=== PATIENT | male | born 1940 | race Caucasian/White ===

== ENCOUNTER 2020-11-16 10:53 | Inpatient (IN) ==
[2020-11-16] MEDS ORDERED: 0.9 % SODIUM CHLORIDE 1,000 ML IV ONE (11:11)
--- NOTE | 2020-11-16 11:28 | Emergency Department Note ---
Altered Mental Status HPI General Chief Complaint: Altered Mental Status Stated Complaint: Altered loc, hypotension Time Seen by Provider: 11/16/20 11:16 Source: EMS Mode of arrival: EMS History of Present Illness HPI Narrative: 80-year-old male arrives from assisted living facility by EMS for evaluation of altered mental status. Patient is very sleepy arousable only to pain and history is provided by his and daughter who are here at the bedside. Patient does not have advanced dementia has had a previous stroke with some chronic right-sided deficits and has had a progressive decline in terms of his dementia and was placed in assisted living facility just earlier this week 4 days ago. The patient was last seen by his family 3 days ago at which time he was awake and alert. Today he received a call that the patient was difficult to arouse and was very sleepy and when the went to see him he was not at his baseline. Patient had not had anything to eat. He would only moan when you try to wake him up or touch any of his joints. Patient does not take any chronic pain medications or any sedatives.. Patient does have chronic pain in his joints presumably due to arthritis. There is no known fall or trauma. Nodes are chronically clear runny nose which appears slightly yellow today. Patient has a history of dementia previous stroke COPD hyperlipidemia. No history of diabetes. No additional history is available. Related Data Allergies Allergy/AdvReac Type Severity Reaction Status Date / Time hydromorphone Allergy Unknown Itching Verified 11/16/20 10:54 gluten [GLUTEN] AdvReac Severe Hives Verified 11/16/20 10:54 No to Iodine Allergy Unknown Unknown Uncoded 10/27/14 03:57 No to Latex Allergy Unknown Uncoded 10/27/14 03:57 Review of Systems ROS ROS Narrative: Unobtainable due to the patient having dementia [facility] Narrative Patient History Narrative: Narrative: Medical/Surgical/Family History All Active Problems (Updated 11/16/20 @ 15:49 by Juancho Salas MD) Altered mental status (Acute) Dementia (Acute) Dehydration (Acute) Pneumonia (Acute) Social History Smoking Status: Unknown if ever smoked Exam Narrative Narrative: Constitutional: Sleepy arousable to pain and voice HEENT: Normocephalic, atraumatic , oral mucosa dry, there are some yellow rhinorrhea out of the left nostril Neck: Supple, no lymphadenopathy, no JVD Lungs: Breathing unlabored, lungs clear Cardiac: Regular rate and rhythm, normal distal pulses, systolic murmur is present GI: Soft nontender nondistended no guarding no rebound Musculoskeletal: Diffuse extremity tenderness and joint tenderness which apparently is chronic. No deformities, no edema, full range of motion Neuro: Sleepy very arousable does not speak only moans when I try to move any of his joints, does not follow commands Psychiatric: Unable to assess Skin: Warm dry no rash, cap refill less than 2 seconds Course Reevaluation(s) Reevaluation #1: States patient has been a little bit more awake had some water to drink. But still is not at his baseline level of alertness. Time: 16:00 Consultations Consultation #1: Case discussed with hospitalist, Dr. Swan who agrees to see and admit the patient. Time: 16:22 Vital Signs Vital signs: Vital Signs Temperature 97.9 F 11/16/20 10:54 Pulse Rate 103 H 11/16/20 10:54 Respiratory Rate 18 11/16/20 10:54 Blood Pressure 101/73 11/16/20 10:54 Pulse Oximetry (%) 93 11/16/20 10:54 Temperature 97.4 F 11/16/20 17:55 Pulse Rate 83 11/16/20 17:55 Respiratory Rate 32 H 11/16/20 17:55 Blood Pressure 117/76 11/16/20 17:55 Pulse Oximetry (%) 94 11/16/20 17:55 [facility] MDM Narrative Medical decision making narrative: 80-year-old male with history of dementia recently placed in assisted living 4 days ago presents with altered mental status decreased level of alertness. Patient's family last saw him 3 days ago and he was awake alert but at his baseline level of confusion. Patient was difficult to awaken this morning. She does awaken to pain or verbal stimuli. CT of the brain did not show any acute process chest x-ray of bilateral infiltrates CHF or pneumonia are considerations. White blood cell count was found to be 17.1 electrolytes notable for chloride 110 CO2 19 BUN 25 glucose of 158. Urinalysis also appeared concentrated there was some hematuria was a catheterized specimen. 5 white blood cells per high-power field noted. Patient had a lactic acid which was normal. Suspect patient's presentation of altered mental status likely factorial with a combination of dehydration, suspect there is infection possibly pneumonia and/or UTI doses of IV Rocephin and Zithromax.. Patient will need to be admitted and hospitalist will be paged at this time. Differential Diagnosis Differential Diagnosis: Stroke, dehydration, metabolic derangement, infection, med side effect Lab Data Result diagrams: 11/16/20 11:36 11/16/20 11:36 Labs: Lab Results 11/16/20 11/16/20 11/16/20 Range/Units 11:36 11:36 11:36 WBC 17.1 H (4.5-11.0) K/mcL RBC 4.90 (4.50-5.90) M/mcL Hgb 13.6 (13.5-16.5) g/dL Hct 44.2 (41.0-55.0) % MCV 90.2 (80.0-100.0) fL MCH 27.8 (26.0-34.0) pg MCHC 30.8 L (31.0-36.0) g/dL RDW 16.4 H (11.5-14.5) % Plt Count 233 (140-440) K/mcL MPV 11.1 H (7.4-10.4) fL Neut % (Auto) 87.9 H (38.0-78.0) % Lymph % (Auto) 4.7 L (15.0-49.0) % [place] % (Auto) 7.1 (1.0-12.0) % Eos % (Auto) 0.1 (0.0-7.0) % Baso % (Auto) 0.2 (0.0-2.0) % Lymph # (Auto) 0.80 L (1.50-4.80) K/mcL [place] # (Auto) 1.22 H (0.10-0.90) K/mcL Eos # (Auto) 0.01 (0.00-0.70) K/mcL Baso # (Auto) 0.04 (0.00-0.20) K/mcL Absolute Neutrophils 15.07 H (1.80-8.00) K/mcL VBG Lactic Acid 1.9 (0.5-2.0) mmol/L Sodium 140 (133-145) mmol/L Potassium 3.7 (3.3-5.1) mmol/L Chloride 110 H (96-108) mmol/L Carbon Dioxide 19 L (22-30) mmol/L Anion Gap 11.0 (8.0-16.0) BUN 25 H (8-23) mg/dL Creatinine 1.2 (0.7-1.2) mg/dL POC Creatinine 1.2 (0.6-1.2) mg/dL GFR Calculation 56 Glucose 158 H (70-105) mg/dL Calcium 9.2 (8.6-10.4) mg/dL Total Bilirubin 2.8 H (0.1-1.0) mg/dL AST 33 (<40) U/L ALT 17 (<40) U/L Alkaline Phosphatase 116 (39-117) U/L Troponin T (<0.03) ng/mL NT-Pro-B Natriuret Pep (<450.0) pg/mL Total Protein 6.8 (5.9-8.4) gm/dL Albumin 2.5 L (3.2-5.2) gm/dL Globulin 4.3 H (2.2-3.7) gm/dL Albumin/Globulin Ratio 0.6 L (1.0-2.3) Urine Color Urine Appearance (Clear) Urine pH (5.0-9.0) Ur Specific [place] (1.000-1.035) Urine Protein (Negative) mg/dL Urine Glucose (UA) (Negative) mg/dL Urine Ketones (Negative) mg/dL Urine Occult Blood (Negative) mg/dL Urine Nitrate (Negative) Urine Bilirubin (Negative) mg/dL Urine Urobilinogen mg/dL Ur Leukocyte Esterase (Negative) /ug Urine RBC (0-3) /hpf Urine WBC (0-4) /hpf Ur Squamous Epith Cells (0-4) /hpf Ur Transition Epith Cell (0-2) /hpf Urine Bacteria (0) /hpf Hyaline Casts (0-2) /lph Granular Casts (0-0) /lph Urine Mucus (None) /hpf Urine Opiates Screen Ur Opiates Confirm Ur Oxycodone Screen Urine Methadone Screen Ur Methadone Confirm Ur Barbiturates Screen Ur Barbiturate Confirm Ur Phencyclidine Scrn Urine PCP Confirm Ur Amphetamines Screen U Amphetamines Confirm U Benzodiazepines Scrn U Benzodiazepine Confm Urine Cocaine Screen Urine Cocaine Confirm U Cannabinoids Confirm U Marijuana (THC) Screen 11/16/20 11/16/20 11/16/20 Range/Units 11:36 11:36 12:54 WBC (4.5-11.0) K/mcL RBC (4.50-5.90) M/mcL Hgb (13.5-16.5) g/dL Hct (41.0-55.0) % MCV (80.0-100.0) fL MCH (26.0-34.0) pg MCHC (31.0-36.0) g/dL RDW (11.5-14.5) % Plt Count (140-440) K/mcL MPV (7.4-10.4) fL Neut % (Auto) (38.0-78.0) % Lymph % (Auto) (15.0-49.0) % [place] % (Auto) (1.0-12.0) % Eos % (Auto) (0.0-7.0) % Baso % (Auto) (0.0-2.0) % Lymph # (Auto) (1.50-4.80) K/mcL [place] # (Auto) (0.10-0.90) K/mcL Eos # (Auto) (0.00-0.70) K/mcL Baso # (Auto) (0.00-0.20) K/mcL Absolute Neutrophils (1.80-8.00) K/mcL VBG Lactic Acid (0.5-2.0) mmol/L Sodium (133-145) mmol/L Potassium (3.3-5.1) mmol/L Chloride (96-108) mmol/L Carbon Dioxide (22-30) mmol/L Anion Gap (8.0-16.0) BUN (8-23) mg/dL Creatinine (0.7-1.2) mg/dL POC Creatinine (0.6-1.2) mg/dL GFR Calculation Glucose (70-105) mg/dL Calcium (8.6-10.4) mg/dL Total Bilirubin (0.1-1.0) mg/dL AST (<40) U/L ALT (<40) U/L Alkaline Phosphatase (39-117) U/L Troponin T 0.02 (<0.03) ng/mL NT-Pro-B Natriuret Pep 2722.0 H (<450.0) pg/mL Total Protein (5.9-8.4) gm/dL Albumin (3.2-5.2) gm/dL Globulin (2.2-3.7) gm/dL Albumin/Globulin Ratio (1.0-2.3) Urine Color Urine Appearance (Clear) Urine pH (5.0-9.0) Ur Specific [place] (1.000-1.035) Urine Protein (Negative) mg/dL Urine Glucose (UA) (Negative) mg/dL Urine Ketones (Negative) mg/dL Urine Occult Blood (Negative) mg/dL Urine Nitrate (Negative) Urine Bilirubin (Negative) mg/dL Urine Urobilinogen mg/dL Ur Leukocyte Esterase (Negative) /ug Urine RBC (0-3) /hpf Urine WBC (0-4) /hpf Ur Squamous Epith Cells (0-4) /hpf Ur Transition Epith Cell (0-2) /hpf Urine Bacteria (0) /hpf Hyaline Casts (0-2) /lph Granular Casts (0-0) /lph Urine Mucus (None) /hpf Urine Opiates Screen None detected Ur Opiates Confirm TNP Ur Oxycodone Screen None detected Urine Methadone Screen None detected Ur Methadone Confirm TNP Ur Barbiturates Screen None detected Ur Barbiturate Confirm TNP Ur Phencyclidine Scrn None detected Urine PCP Confirm TNP Ur Amphetamines Screen None detected U Amphetamines Confirm TNP U Benzodiazepines Scrn None detected U Benzodiazepine Confm TNP Urine Cocaine Screen None detected Urine Cocaine Confirm TNP U Cannabinoids Confirm TNP U Marijuana (THC) Screen None detected 11/16/20 Range/Units 12:54 WBC (4.5-11.0) K/mcL RBC (4.50-5.90) M/mcL Hgb (13.5-16.5) g/dL Hct (41.0-55.0) % MCV (80.0-100.0) fL MCH (26.0-34.0) pg MCHC (31.0-36.0) g/dL RDW (11.5-14.5) % Plt Count (140-440) K/mcL MPV (7.4-10.4) fL Neut % (Auto) (38.0-78.0) % Lymph % (Auto) (15.0-49.0) % [place] % (Auto) (1.0-12.0) % Eos % (Auto) (0.0-7.0) % Baso % (Auto) (0.0-2.0) % Lymph # (Auto) (1.50-4.80) K/mcL [place] # (Auto) (0.10-0.90) K/mcL Eos # (Auto) (0.00-0.70) K/mcL Baso # (Auto) (0.00-0.20) K/mcL Absolute Neutrophils (1.80-8.00) K/mcL VBG Lactic Acid (0.5-2.0) mmol/L Sodium (133-145) mmol/L Potassium (3.3-5.1) mmol/L Chloride (96-108) mmol/L Carbon Dioxide (22-30) mmol/L Anion Gap (8.0-16.0) BUN (8-23) mg/dL Creatinine (0.7-1.2) mg/dL POC Creatinine (0.6-1.2) mg/dL GFR Calculation Glucose (70-105) mg/dL Calcium (8.6-10.4) mg/dL Total Bilirubin (0.1-1.0) mg/dL AST (<40) U/L ALT (<40) U/L Alkaline Phosphatase (39-117) U/L Troponin T (<0.03) ng/mL NT-Pro-B Natriuret Pep (<450.0) pg/mL Total Protein (5.9-8.4) gm/dL Albumin (3.2-5.2) gm/dL Globulin (2.2-3.7) gm/dL Albumin/Globulin Ratio (1.0-2.3) Urine Color [place] Urine Appearance Hazy A (Clear) Urine pH 5.0 (5.0-9.0) Ur Specific [place] 1.029 (1.000-1.035) Urine Protein 100 A (Negative) mg/dL Urine Glucose (UA) Neg (Negative) mg/dL Urine Ketones Neg (Negative) mg/dL Urine Occult Blood 0.20 (Negative) mg/dL Urine Nitrate Neg (Negative) Urine Bilirubin 2.0 A (Negative) mg/dL Urine Urobilinogen 4.0 A mg/dL Ur Leukocyte Esterase Neg (Negative) /ug Urine RBC 56 H (0-3) /hpf Urine WBC 5 H (0-4) /hpf Ur Squamous Epith Cells 1 (0-4) /hpf Ur Transition Epith Cell < 1 (0-2) /hpf Urine Bacteria None (0) /hpf Hyaline Casts 35 H (0-2) /lph Granular Casts 7 H (0-0) /lph Urine Mucus Many A (None) /hpf Urine Opiates Screen Ur Opiates Confirm Ur Oxycodone Screen Urine Methadone Screen Ur Methadone Confirm Ur Barbiturates Screen Ur Barbiturate Confirm Ur Phencyclidine Scrn Urine PCP Confirm Ur Amphetamines Screen U Amphetamines Confirm U Benzodiazepines Scrn U Benzodiazepine Confm Urine Cocaine Screen Urine Cocaine Confirm U Cannabinoids Confirm U Marijuana (THC) Screen ED POC Tests ED POC Tests: SACHA - SARS Antigen Negative EKG Data EKG #1: EKG attestation: Yes I reviewed and interpreted this EKG. and Yes There are no EKG findings of acute coronary syndrome EKG results narrative: EKG performed 1123 shows sinus tachycardia rate of 100 first-degree AV block right bundle branch block left anterior fascicular block left axis deviation LVH nonspecific ST changes Discharge Plan Patient/Caregiver Discharge Instructions Pt seen by DIRECTOR TRAFFIC AND PLANNING/PA only: No Clinical Impression: Altered mental status, Dementia, Dehydration, Pneumonia Patient Disposition: Xfer As Inpt ([facility]) Condition: Fair Discharge Date/Time: 11/16/20 17:40
[2020-11-16] MEDS ORDERED: 0.9 % SODIUM CHLORIDE 1,000 ML IV SCH (11:30)
[2020-11-16 11:44] LABS: POC Creatinine 1.2 mg/dL (0.6-1.2)
--- NOTE | 2020-11-16 12:07 | EKG ---
[facility] Test Date: 2020-11-16 Pat Name: Cody Martin Department: ED Room: Gender: Male Speech Language Pathology Assistant: : 1940 Requested By: Juancho Salas Order Number: [id number] Reading MD: Jesse Patel M.D. Measurements Intervals [place] Rate: 100 P: 115 PA: 237 QRS: -46 QRSD: 124 T: -2 QT: 364 QTc: 470 Interpretive Statements Sinus tachycardia Prolonged PA interval RBBB and LAFB Left ventricular hypertrophy NO PRIOR TRACING FOR COMPARISON ABNORMAL ECG Electronically Signed On 11-16-2020 12:06:59 PDT by Jesse Patel M.D. [place] [email or web address][id number]
[2020-11-16 12:19] LABS: Basophils # (Auto) 0.04 K/mcL (0.00-0.20); Basophils % (Auto) 0.2 % (0.0-2.0); Eosinophils # (Auto) 0.01 K/mcL (0.00-0.70); Eosinophils % (Auto) 0.1 % (0.0-7.0); Hematocrit 44.2 % (41.0-55.0); Hemoglobin 13.6 g/dL (13.5-16.5); Lymphocytes % (Auto) 4.7 % (15.0-49.0); Mean Cell Volume 90.2 fL (80.0-100.0); Mean Corpuscular HGB Conc 30.8 g/dL (31.0-36.0); Mean Platelet Volume 11.1 fL (7.4-10.4); Monocytes # (Auto) 1.22 K/mcL (0.10-0.90); Monocytes % (Auto) 7.1 % (1.0-12.0); Neutrophils % (Auto) 87.9 % (38.0-78.0); Platelet Count 233 K/mcL (140-440); Red Cell Distribution Width 16.4 % (11.5-14.5); WBC 17.1 K/mcL (4.5-11.0)
--- NOTE | 2020-11-16 12:37 | Cat Scan Report ---
CLINICAL INFORMATION: Altered mental status COMPARISON: None. TECHNIQUE: 2.5 mm helical slices were obtained in the skull base to vertex. Following reconstruction, axial reformatted images were reviewed at bone and parenchymal windows. The exam was performed using radiation dose optimization techniques including, but not limited to, automated exposure control, adjustment of the mA and/or kV according to patient size and use of iterative reconstruction technique. FINDINGS: The ventricles, sulci, fissures, and cisterns are symmetrically enlarged bowel moderate age-related atrophy. No extra-axial fluid collections are identified. Scattered remote lacunar infarcts in basal ganglia and deep cerebral white matter appreciated: the largest 13 mm in the deep right frontal white matter tending to the right lentiform nucleus. A 9 mm lacunar infarct is noted in the left lentiform nucleus and 11 mm remote infarct seen in the right thalamus... There is no evidence of hemorrhage, mass effect, or edema. Bone windows show no osseous abnormality. IMPRESSION: Moderate atrophy, chronic ischemic changes and remote lacunar infarcts in the deep cerebral white matter, basal ganglia and thalamus. No intracerebral hemorrhage or other acute finding. Interpreted and Authenticated by: Talon Nunez 11/16/20
[2020-11-16 12:45] LABS: ALT/SGPT 17 U/L (<40); AST/SGOT 33 U/L (<40); Albumin 2.5 gm/dL (3.2-5.2); Albumin/Globulin Ratio 0.6 (1.0-2.3); Alkaline Phosphatase 116 U/L (39-117); Bilirubin,Total 2.8 mg/dL (0.1-1.0); Blood Urea Nitrogen 25 mg/dL (8-23); Calcium 9.2 mg/dL (8.6-10.4); Carbon Dioxide 19 mmol/L (22-30); Chloride 110 mmol/L (96-108); Globulin 4.3 gm/dL (2.2-3.7); Glomerular Filtration Rate 56; Glucose 158 mg/dL (70-105)
--- NOTE | 2020-11-16 13:16 | XRay Report ---
CLINICAL INFORMATION: ams COMPARISON: 07/17/2012 FINDINGS: Moderate cardiomegaly is unchanged. A pacer and leads remain in stable satisfactory position. Mediastinum is unremarkable. Moderate interstitial disease has developed throughout both lungs. This obscures the pulmonary vasculature which appears to be grossly normal. No effusions. IMPRESSION: Moderate interstitial disease developing throughout both lungs. This may represent infection, inflammation or edema from prior CHF or volume overload. Correlate with BNP and other signs of CHF suggested Interpreted and Authenticated by: Talon Nunez 11/16/20
[2020-11-16 14:01] LABS: Appearance,Urine HAZY (Clear); Color,Urine AMBER; Glucose,Urine (UA) NEG (Negative); Ketones,Urine NEG (Negative); Leukocyte Esterase,Urine NEG /ug (Negative); Mucus,Urine MANY /hpf; Nitrate,Urine NEG (Negative); Protein,Urine 100 mg/dL (Negative); Specific Gravity,Urine 1.029 (1.000-1.035); Urine Granular Cast 7 /lph (0-0); Urine Hyaline Cast 35 /lph (0-2); Urine RBC 56 /hpf (0-3); Urine Squamous Epithelial Cell 1 /hpf (0-4); Urine Transitional Epi Cells < 1 /hpf (0-2); Urine WBC 5 /hpf (0-4)
[2020-11-16 14:16] LABS: Amphetamine Screen,Urine None detected; Barbiturate Screen,Urine None detected; Benzodiazepines Screen,Urine None detected; Cannabinoid Screen,Urine None detected; Cocaine Screen,Urine None detected; Opiate Screen,Urine None detected; Oxycodone, Urine Screen None detected; Phencyclidine Screen,Urine None detected
[2020-11-16] MEDS ORDERED: AZITHROMYCIN 500 MG in DEXTROSE 5% IN WATER 250 ML IV ONE (15:35)
[2020-11-16] MEDS ORDERED: cefTRIAXone 1 GM VIAL IV ONE (15:35)
--- NOTE | 2020-11-16 16:50 | Internal Med History&Physical ---
HPI History of Present Illness Patient information: Note initiated : 11/16/20 at 4:41 pm Service Date, if different from initiated Date: [] Patient: Cody Martin a 80 y/o M admitted on for Altered loc, hypotension. Chief Complaint: [] History of present illness: Mr. Martin is a 80 year old M Presents to the ED with decreased level of consciousness. Patient has dementia and was recently placed in [facility] on Thursday. Over the past few days he is gradually declined and become less responsive. And is not feeding himself. The says she usually has to initiate feeding him each meal and then oftentimes will take over. Family went and saw him today and he was poorly responsive compared to usual. He is not verbal at baseline but is typically alert. Work-up in the ED showed a blood pressure of systolic in the 90s he was mildly tachycardic. He had a leukocytosis. Chemistry showed some what appeared to be some volume depletion. BNP was elevated. Chest x-ray was read as CHF and mild bibasilar infiltrates or atelectasis. Urinal with dehydration findings hyaline casts. CT brain with moderate atrophy and chronic ischemic changes remote infarcts but nothing acute. Unable to gather review of systems given underlying dementia PFSH PFSH All Active Problems (Updated 11/16/20 @ 15:49 by Juancho Salas MD) Altered mental status (Acute) Dementia (Acute) Dehydration (Acute) Pneumonia (Acute) MEDS/ALLERGIES Home Medications and Allergies Allergies Allergy/AdvReac Type Severity Reaction Status Date / Time hydromorphone Allergy Unknown Itching Verified 11/16/20 10:54 gluten [GLUTEN] AdvReac Severe Hives Verified 11/16/20 10:54 No to Iodine Allergy Unknown Unknown Uncoded 10/27/14 03:57 No to Latex Allergy Unknown Uncoded 10/27/14 03:57 EXAM Constitutional Vitals: Temp Pulse Resp BP Pulse Ox 97.9 F 86 21 100/75 96 11/16/20 10:54 11/16/20 15:46 11/16/20 16:34 11/16/20 16:34 11/16/20 15:46 Exam: General: Drowsy, No acute Distress Eyes/N/T: EOMI, PERRL, dry MM Head/Neck: neck supple, normocephalic atraumatic CV: RRR, No murmurs, normal s1/s2 Pulm: Difficult to auscultate as patient will not cooperate with exam Abd: soft, nontender, +BS x4 Ext: no clubbing/cyanosis/edema Neuro: Drowsy, will give slight cylinder worker bilaterally to command and wiggle toes to command, does not open eyes to command Skin: warm/dry DATA Data Completed and Pending Labs: Labs from last 24 hours 11/16/20 11/16/20 11/16/20 12:54 12:54 11:36 WBC RBC Hgb Hct MCV MCH MCHC RDW Plt Count MPV Neut % (Auto) Lymph % (Auto) [place] % (Auto) Eos % (Auto) Baso % (Auto) Lymph # (Auto) [place] # (Auto) Eos # (Auto) Baso # (Auto) Absolute Neutrophils VBG Lactic Acid Sodium Potassium Chloride Carbon Dioxide Anion Gap BUN Creatinine POC Creatinine GFR Calculation Glucose Calcium Total Bilirubin AST ALT Alkaline Phosphatase Troponin T NT-Pro-B Natriuret Pep 2722.0 H Total Protein Albumin Globulin Albumin/Globulin Ratio Urine Color [place] Urine Appearance Hazy A Urine pH 5.0 Ur Specific [place] 1.029 Urine Protein 100 A Urine Glucose (UA) Neg Urine Ketones Neg Urine Occult Blood 0.20 Urine Nitrate Neg Urine Bilirubin 2.0 A Urine Urobilinogen 4.0 A Ur Leukocyte Esterase Neg Urine RBC 56 H Urine WBC 5 H Ur Squamous Epith Cells 1 Ur Transition Epith Cell < 1 Urine Bacteria None Hyaline Casts 35 H Granular Casts 7 H Urine Mucus Many A Urine Opiates Screen None detected Ur Opiates Confirm TNP Ur Oxycodone Screen None detected Urine Methadone Screen None detected Ur Methadone Confirm TNP Ur Barbiturates Screen None detected Ur Barbiturate Confirm TNP Ur Phencyclidine Scrn None detected Urine PCP Confirm TNP Ur Amphetamines Screen None detected U Amphetamines Confirm TNP U Benzodiazepines Scrn None detected U Benzodiazepine Confm TNP Urine Cocaine Screen None detected Urine Cocaine Confirm TNP U Cannabinoids Confirm TNP U Marijuana (THC) Screen None detected 11/16/20 11/16/20 11/16/20 11:36 11:36 11:36 WBC RBC Hgb Hct MCV MCH MCHC RDW Plt Count MPV Neut % (Auto) Lymph % (Auto) [place] % (Auto) Eos % (Auto) Baso % (Auto) Lymph # (Auto) [place] # (Auto) Eos # (Auto) Baso # (Auto) Absolute Neutrophils VBG Lactic Acid 1.9 Sodium 140 Potassium 3.7 Chloride 110 H Carbon Dioxide 19 L Anion Gap 11.0 BUN 25 H Creatinine 1.2 POC Creatinine 1.2 GFR Calculation 56 Glucose 158 H Calcium 9.2 Total Bilirubin 2.8 H AST 33 ALT 17 Alkaline Phosphatase 116 Troponin T 0.02 NT-Pro-B Natriuret Pep Total Protein 6.8 Albumin 2.5 L Globulin 4.3 H Albumin/Globulin Ratio 0.6 L Urine Color Urine Appearance Urine pH Ur Specific [place] Urine Protein Urine Glucose (UA) Urine Ketones Urine Occult Blood Urine Nitrate Urine Bilirubin Urine Urobilinogen Ur Leukocyte Esterase Urine RBC Urine WBC Ur Squamous Epith Cells Ur Transition Epith Cell Urine Bacteria Hyaline Casts Granular Casts Urine Mucus Urine Opiates Screen Ur Opiates Confirm Ur Oxycodone Screen Urine Methadone Screen Ur Methadone Confirm Ur Barbiturates Screen Ur Barbiturate Confirm Ur Phencyclidine Scrn Urine PCP Confirm Ur Amphetamines Screen U Amphetamines Confirm U Benzodiazepines Scrn U Benzodiazepine Confm Urine Cocaine Screen Urine Cocaine Confirm U Cannabinoids Confirm U Marijuana (THC) Screen 11/16/20 11:36 WBC 17.1 H RBC 4.90 Hgb 13.6 Hct 44.2 MCV 90.2 MCH 27.8 MCHC 30.8 L RDW 16.4 H Plt Count 233 MPV 11.1 H Neut % (Auto) 87.9 H Lymph % (Auto) 4.7 L [place] % (Auto) 7.1 Eos % (Auto) 0.1 Baso % (Auto) 0.2 Lymph # (Auto) 0.80 L [place] # (Auto) 1.22 H Eos # (Auto) 0.01 Baso # (Auto) 0.04 Absolute Neutrophils 15.07 H VBG Lactic Acid Sodium Potassium Chloride Carbon Dioxide Anion Gap BUN Creatinine POC Creatinine GFR Calculation Glucose Calcium Total Bilirubin AST ALT Alkaline Phosphatase Troponin T NT-Pro-B Natriuret Pep Total Protein Albumin Globulin Albumin/Globulin Ratio Urine Color Urine Appearance Urine pH Ur Specific [place] Urine Protein Urine Glucose (UA) Urine Ketones Urine Occult Blood Urine Nitrate Urine Bilirubin Urine Urobilinogen Ur Leukocyte Esterase Urine RBC Urine WBC Ur Squamous Epith Cells Ur Transition Epith Cell Urine Bacteria Hyaline Casts Granular Casts Urine Mucus Urine Opiates Screen Ur Opiates Confirm Ur Oxycodone Screen Urine Methadone Screen Ur Methadone Confirm Ur Barbiturates Screen Ur Barbiturate Confirm Ur Phencyclidine Scrn Urine PCP Confirm Ur Amphetamines Screen U Amphetamines Confirm U Benzodiazepines Scrn U Benzodiazepine Confm Urine Cocaine Screen Urine Cocaine Confirm U Cannabinoids Confirm U Marijuana (THC) Screen A/P Narrative A/P Narrative: A: *Encephalopathy(decreased LOC) superimposed on advanced dementia: -CT brain with mod atrophy and old infarcts *Advanced dementia: *Leukocytosis: Infectious vs other *Volume depletion: *COPD: Stopped using inhalers *PAM: Stopped using CPAP, could not tolerate *h/o CVA: stopped taking asa/statin *CAD: pt Stopped taking cardiac meds *Patient only takes Tylenol these days per family, stopped medications he has been on in the past P: -IVF -empiric abx, pending BC -Mannual differential/procalcitonin -RVP -ABG -CM for placement -PT/OT -ppx: lovenox DNR Time Spent With Patient Time: Total time spent is greater than 50% in coordination of care (as documented) at patient's floor/unit and/or counseling patient:
[2020-11-16] MEDS ORDERED: IPRATROPIUM/ALBUTEROL 3 ML AMPUL.NEB NEB PRN (18:20)
[2020-11-16] MEDS ORDERED: MAGNESIUM SULFATE 2 GM/50 ML BAG IV PRN (18:20)
[2020-11-16] MEDS ORDERED: POTASSIUM CHLORIDE 40 MEQ in DEXTROSE 5% IN WATER 500 ML IV PRN (18:20)
[2020-11-16] MEDS ORDERED: POTASSIUM CHLORIDE 20 MEQ TABLET PO PRN ×2 (18:20)
[2020-11-16] MEDS ORDERED: ONDANSETRON 4 MG/2 ML VIAL IV PRN (18:20)
[2020-11-16] MEDS ORDERED: SENNOSIDES 1 TABLET PO PRN (18:20)
[2020-11-16] MEDS ORDERED: POLYETHYLENE GLYCOL 3350 17 GM PACKET PO PRN (18:20)
[2020-11-16] MEDS ORDERED: ACETAMINOPHEN 325 MG TABLET PO ONE (19:03)
[2020-11-16] MEDS: 0.9 % SODIUM CHLORIDE 1,000 ML IV SCH (19:13)
[2020-11-16] MEDS: ACETAMINOPHEN 325 MG TABLET PO PRN (19:13)
[2020-11-16 19:48] LABS: Anisocytosis 1+ (None Seen); Band Neutrophils % 2 % (0-10); Lymphocytes % 7 % (15-49); Monocytes % (Manual) 4 % (1-12); Platelet Estimate NORMAL (Normal); RBC Morphology ABNORMAL (Normal); Segmented Neutrophils % 87 % (38-78)
[2020-11-16] MEDS: DOCUSATE SODIUM 100 MG CAPSULE PO SCH (21:59)
[2020-11-16] MEDS: PIPERACILLIN SODIUM/TAZOBACTAM 3.375 GM in DEXTROSE 5% IN WATER 50 ML IV SCH (22:00)
[2020-11-16] MEDS: 0.9 % SODIUM CHLORIDE 10 ML SYRINGE IV SCH (22:00)
[2020-11-17] MEDS: ACETAMINOPHEN 325 MG TABLET PO PRN ×3 (01:44→15:06)
[2020-11-17] MEDS: PIPERACILLIN SODIUM/TAZOBACTAM 3.375 GM in DEXTROSE 5% IN WATER 50 ML IV SCH ×5 (04:04→23:41)
[2020-11-17] MEDS: 0.9 % SODIUM CHLORIDE 10 ML SYRINGE IV SCH ×3 (05:40→21:27)
[2020-11-17] MEDS: 0.9 % SODIUM CHLORIDE 1,000 ML IV SCH (06:32)
[2020-11-17] MEDS: PANTOPRAZOLE 40 MG TABLET PO SCH (07:14)
--- NOTE | 2020-11-17 07:36 | Internal Med Progress Note ---
SUBJECTIVE Subjective Patient information: Note initiated : 11/17/20 at 7:31 am Service Date, if different from initiated Date: [] Patient: Cody Martin 80 y/o M admitted on 11/16/20 for Altered loc, hypotension. Chief Complaint: [] Interval history: History of present illness: Mr. Martin is a 80 year old M Presents to the ED with decreased level of consciousness. Patient has dementia and was recently placed in [facility] on Thursday. Over the past few days he is gradually declined and become less responsive. And is not feeding himself. The says she usually has to initiate feeding him each meal and then oftentimes will take over. Family went and saw him today and he was poorly responsive compared to usual. He is not verbal at baseline but is typically alert. Work-up in the ED showed a blood pressure of systolic in the 90s he was mildly tachycardic. He had a leukocytosis. Chemistry showed some what appeared to be some volume depletion. BNP was elevated. Chest x-ray was read as CHF and mild bibasilar infiltrates or atelectasis. Urinal with dehydration findings hyaline casts. CT brain with moderate atrophy and chronic ischemic changes remote infarcts but nothing acute. 11/17 No overnight event or new complaints. Leukocytosis improving. chemistry panel pending. Blood culture still pending. Unable to gather review of systems given underlying dementia Constitutional Vitals: Vital Signs Temp Pulse Resp BP Pulse Ox 97 F 99 H 24 H 121/89 92 11/17/20 07:05 11/17/20 07:05 11/17/20 07:05 11/17/20 07:05 11/17/20 07:05 Period Temp Pulse Resp BP Sys/Iglesias Pulse Ox Last 24 Hr 96.9 F-97.9 F 68-106 15-39 86-121/66-89 92-97 Intake and Output 11/16/20 11/17/20 11/17/20 21:59 05:59 13:59 Intake Total 5551 434 9155 Output Total 400 Balance 8601 739 1321 Weight 82.055 kg Intake & Output: Intake & Output 11/16/20 11/17/20 11/17/20 21:59 05:59 13:59 Intake Total 9864 149 7337 Output Total 400 Balance 6858 217 1051 Weight 82.055 kg Intake: IV 8396 146 1524 Sodium Chloride 0.9% 1,000 ml @ 1000 1000 100 mls/hr IV .Q10H [facility] Rx#: [id number] Zithromax 500 mg In Dextrose 5% 250 in Water 250 ml @ 250 mls/hr IV ONCE ONE Rx#:[id number] Zosyn 3.375 gm In Dextrose 5% 100 in Water 50 ml @ 100 mls/hr IV Q6H [facility] Rx#:[id number] Oral 400 Output: Urine Catheter Amount 400 Other: Urine Appearance Mucous Threads Urine Color Tea Colored Exam: General: Drowsy, No acute Distress Eyes/N/T: EOMI, Head/Neck: neck supple, CV: RRR, No murmurs, Pulm: Difficult to auscultate as patient will not cooperate with exam Abd: soft, nontender, +BS x4 Ext: no clubbing/cyanosis/edema Neuro: Drowsy, will give slight demolitionist bilaterally to command and wiggle toes to command, does not open eyes to command Skin: warm/dry OBJ DATA Labs CBC & Chem 7: 11/17/20 05:13 11/16/20 11:36 Labs: Abnormal Lab Results 11/16/20 11/16/20 11/16/20 17:18 17:17 12:54 WBC MCHC RDW MPV Neut % (Auto) Lymph % (Auto) Lymph # (Auto) [place] # (Auto) Seg Neutrophils % 87 H Lymphocytes % 7 L Absolute Neutrophils RBC Morphology Abnormal A Anisocytosis 1+ A Chloride Carbon Dioxide BUN Glucose Total Bilirubin C-Reactive Protein NT-Pro-B Natriuret Pep Albumin Globulin Albumin/Globulin Ratio Procalcitonin 0.43 H Urine Appearance Hazy A Urine Protein 100 A Urine Bilirubin 2.0 A Urine Urobilinogen 4.0 A Urine RBC 56 H Urine WBC 5 H Hyaline Casts 35 H Granular Casts 7 H Urine Mucus Many A 11/16/20 11/16/20 11/16/20 11:36 11:36 11:36 WBC MCHC RDW MPV Neut % (Auto) Lymph % (Auto) Lymph # (Auto) [place] # (Auto) Seg Neutrophils % Lymphocytes % Absolute Neutrophils RBC Morphology Anisocytosis Chloride 110 H Carbon Dioxide 19 L BUN 25 H Glucose 158 H Total Bilirubin 2.8 H C-Reactive Protein 32.30 H NT-Pro-B Natriuret Pep 2722.0 H Albumin 2.5 L Globulin 4.3 H Albumin/Globulin Ratio 0.6 L Procalcitonin Urine Appearance Urine Protein Urine Bilirubin Urine Urobilinogen Urine RBC Urine WBC Hyaline Casts Granular Casts Urine Mucus 11/16/20 11:36 WBC 17.1 H MCHC 30.8 L RDW 16.4 H MPV 11.1 H Neut % (Auto) 87.9 H Lymph % (Auto) 4.7 L Lymph # (Auto) 0.80 L [place] # (Auto) 1.22 H Seg Neutrophils % Lymphocytes % Absolute Neutrophils 15.07 H RBC Morphology Anisocytosis Chloride Carbon Dioxide BUN Glucose Total Bilirubin C-Reactive Protein NT-Pro-B Natriuret Pep Albumin Globulin Albumin/Globulin Ratio Procalcitonin Urine Appearance Urine Protein Urine Bilirubin Urine Urobilinogen Urine RBC Urine WBC Hyaline Casts Granular Casts Urine Mucus Meds: Medications Acetaminophen (Acetaminophen 325 Mg Tablet) 650 mg PO Q6HP PRN PRN Reason: PAIN/FEVER > 101 Last Admin: 11/17/20 01:44 Dose: 650 mg Documented by: Albuterol/Ipratropium (Ipratropium/Albuterol 3 Ml Ampul.Neb) 3 ml NEB Q4HP PRN PRN Reason: Shortness Of Breath Docusate Sodium (Docusate Sodium 100 Mg Capsule) 100 mg PO BID [facility] Last Admin: 11/16/20 21:59 Dose: 100 mg Documented by: Enoxaparin Sodium (Enoxaparin 40 Mg/0.4 Ml Syringe) 40 mg SQ DAILY [facility] Potassium Chloride 40 meq/ (Dextrose) 520 mls @ 130 mls/hr IV UD PRN PRN Reason: Potassium < 3 Magnesium Sulfate (Magnesium Sulfate) 2 gm in 50 mls @ 50 mls/hr IV UD PRN PRN Reason: Magnesium </= 1.6 Sodium Chloride (Sodium Chloride 0.9%) 1,000 mls @ 100 mls/hr IV .Q10H [facility] Stop: 11/17/20 14:19 Last Infusion: 11/17/20 07:10 Dose: Infused Documented by: Piperacillin Sod/Tazobactam (Sod 3.375 gm/ Dextrose) 50 mls @ 100 mls/hr IV Q6H [facility]; Protocol Last Infusion: 11/17/20 04:35 Dose: Infused Documented by: Mupirocin (Mupirocin Oint 2% 22gm) 1 dose NARES BID [facility] Ondansetron HCl (Ondansetron 4 Mg/2 Ml Vial) 4 mg IV Q4HP PRN PRN Reason: Nausea And Vomiting Pantoprazole Sodium (Pantoprazole 40 Mg Tablet) 40 mg PO QAMAC [facility] Last Admin: 11/17/20 07:14 Dose: 40 mg Documented by: Polyethylene Glycol (Polyethylene Glycol 3350 17 Gm Packet) 17 gm PO DAILYP PRN PRN Reason: Constipation Potassium Chloride (Potassium Chloride 20 Meq Tablet) 40 meq PO UD PRN PRN Reason: Potssium is 3-3.5 Potassium Chloride (Potassium Chloride 20 Meq Tablet) 40 meq PO UD PRN PRN Reason: Potassium < 3 Senna (Sennosides 1 Tablet) 2 tab PO DAILYP PRN PRN Reason: Constipation Sodium Chloride (0.9 % Sodium Chloride 10 Ml Syringe) 10 ml IV Q8 [facility] Last Admin: 11/17/20 05:40 Dose: Not Given Documented by: A/P Narrative A/P Narrative: A: *Encephalopathy(decreased LOC) superimposed on advanced dementia: -CT brain with mod atrophy and old infarcts *Advanced dementia: *Leukocytosis (no bandemia, afebrile): Infectious (?PNA atypical) vs other -RVP/covid neg -PCT(mildly)/CRP elevated *Volume depletion: improved *COPD: Stopped using inhalers *PAM: Stopped using CPAP, could not tolerate *h/o CVA: stopped taking asa/statin *CAD: pt Stopped taking cardiac meds *Patient only takes Tylenol these days per family, stopped medications he has been on in the past P: -IVF -empiric abx, pending BC -MRSA decolonizaton -CM for placement -PT/OT -ppx: lovenox DNR Time Spent With Patient Time: Total time spent is greater than 50% in coordination of care (as documented) at patient's floor/unit and/or counseling patient: QUALITY Stroke Symptom Onset Unknown: No VTE Deep Vein Thrombosis/Pulmonary Embolism Present on Admission: No
[2020-11-17 08:26] LABS: Hematocrit 39.9 % (41.0-55.0); Hemoglobin 12.4 g/dL (13.5-16.5); Mean Cell Volume 89.3 fL (80.0-100.0); Mean Corpuscular HGB Conc 31.1 g/dL (31.0-36.0); Mean Platelet Volume 10.8 fL (7.4-10.4); Platelet Count 247 K/mcL (140-440); RBC 4.47 M/mcL (4.50-5.90); WBC 15.1 K/mcL (4.5-11.0)
[2020-11-17 08:45] LABS: ALT/SGPT 15 U/L (<40); AST/SGOT 22 U/L (<40); Albumin 2.5 gm/dL (3.2-5.2); Albumin/Globulin Ratio 0.7 (1.0-2.3); Alkaline Phosphatase 103 U/L (39-117); Bilirubin,Direct 0.5 mg/dL (<0.3); Bilirubin,Total 1.5 mg/dL (0.1-1.0); Blood Urea Nitrogen 25 mg/dL (8-23); Calcium 8.8 mg/dL (8.6-10.4); Carbon Dioxide 21 mmol/L (22-30); Chloride 109 mmol/L (96-108); Globulin 3.7 gm/dL (2.2-3.7); Glomerular Filtration Rate 79; Glucose 86 mg/dL (70-105); Lactate Dehydrogenase 239 U/L (135-225); Phosphorous 2.7 mg/dL (2.5-4.5); Triglycerides 81 mg/dL (<150); Uric Acid 4.8 mg/dL (2.5-8.0)
[2020-11-17] MEDS: DOCUSATE SODIUM 100 MG CAPSULE PO SCH ×2 (08:53→21:28)
[2020-11-17] MEDS: ENOXAPARIN 40 MG/0.4 ML SYRINGE SQ SCH (08:54)
[2020-11-17] MEDS: MUPIROCIN OINT 2% 22GM NARES SCH ×2 (08:57→21:27)
[2020-11-17] MEDS ORDERED: cefTRIAXone 1 GM VIAL IV SCH (09:00)
[2020-11-17] MEDS ORDERED: AZITHROMYCIN 500 MG in DEXTROSE 5% IN WATER 250 ML IV SCH (09:00)
[2020-11-17 09:23] LABS: Anisocytosis 1+ (None Seen); Band Neutrophils % 2 % (0-10); Lymphocytes % 10 % (15-49); Monocytes % (Manual) 7 % (1-12); Platelet Estimate NORMAL (Normal); RBC Morphology ABNORMAL (Normal); Segmented Neutrophils % 81 % (38-78)
[2020-11-18] MEDS: PIPERACILLIN SODIUM/TAZOBACTAM 3.375 GM in DEXTROSE 5% IN WATER 50 ML IV SCH ×4 (06:33→23:49)
[2020-11-18] MEDS: 0.9 % SODIUM CHLORIDE 10 ML SYRINGE IV SCH ×3 (06:33→21:32)
[2020-11-18 06:43] LABS: Basophils # (Auto) 0.05 K/mcL (0.00-0.20); Basophils % (Auto) 0.4 % (0.0-2.0); Eosinophils # (Auto) 0.21 K/mcL (0.00-0.70); Eosinophils % (Auto) 1.6 % (0.0-7.0); Hemoglobin 12.4 g/dL (13.5-16.5); Lymphocytes # (Auto) 1.31 K/mcL (1.50-4.80); Lymphocytes % (Auto) 9.8 % (15.0-49.0); Mean Cell Volume 90.3 fL (80.0-100.0); Mean Platelet Volume 10.7 fL (7.4-10.4); Monocytes # (Auto) 0.88 K/mcL (0.10-0.90); Monocytes % (Auto) 6.6 % (1.0-12.0); Neutrophils % (Auto) 81.6 % (38.0-78.0); Platelet Count 262 K/mcL (140-440); RBC 4.43 M/mcL (4.50-5.90); Red Cell Distribution Width 15.9 % (11.5-14.5); WBC 13.3 K/mcL (4.5-11.0)
--- NOTE | 2020-11-18 06:50 | XRay Report ---
CLINICAL INFORMATION: f/u infiltrate, suspect atypical PNA vs chf COMPARISON: 11/16/2020 FINDINGS: The heart is mildly enlarged slightly decreased. Pacemaker leads in stable satisfactory position. Mediastinum and pulmonary vasculature are unremarkable. Moderate interstitial disease throughout both lungs, more severe on the left side, is unchanged. No effusions. IMPRESSION: Moderate interstitial disease throughout both lungs - more severe on the left. This was not seen on the remote 2013 exam, but is unchanged from the most recent chest x-ray two days ago. Given the short-term stability, this may represent interstitial fibrosis rather than edema or inflammation. Consider chest CT if clinically indicated Interpreted and Authenticated by: Talon Nunez 11/18/20
[2020-11-18] MEDS: PANTOPRAZOLE 40 MG TABLET PO SCH (06:52)
[2020-11-18] MEDS: ACETAMINOPHEN 325 MG TABLET PO PRN ×2 (06:52→18:04)
[2020-11-18 07:04] LABS: ALT/SGPT 20 U/L (<40); AST/SGOT 28 U/L (<40); Albumin 2.2 gm/dL (3.2-5.2); Albumin/Globulin Ratio 0.5 (1.0-2.3); Alkaline Phosphatase 111 U/L (39-117); Bilirubin,Direct 0.2 mg/dL (<0.3); Bilirubin,Total 0.8 mg/dL (0.1-1.0); Blood Urea Nitrogen 23 mg/dL (8-23); Calcium 8.8 mg/dL (8.6-10.4); Carbon Dioxide 22 mmol/L (22-30); Chloride 110 mmol/L (96-108); Globulin 4.1 gm/dL (2.2-3.7); Glomerular Filtration Rate 79; Glucose 105 mg/dL (70-105); Lactate Dehydrogenase 255 U/L (135-225); Phosphorous 2.1 mg/dL (2.5-4.5); Triglycerides 92 mg/dL (<150); Uric Acid 3.4 mg/dL (2.5-8.0)
--- NOTE | 2020-11-18 07:11 | Internal Med Progress Note ---
SUBJECTIVE Subjective Patient information: Note initiated : 11/18/20 at 7:08 am Service Date, if different from initiated Date: [] Patient: Cody Martin 80 y/o M admitted on 11/16/20 for Altered loc, hypotension. Chief Complaint: [] Interval history: History of present illness: Mr. Martin is a 80 year old M Presents to the ED with decreased level of consciousness. Patient has dementia and was recently placed in [facility] on Thursday. Over the past few days he is gradually declined and become less responsive. And is not feeding himself. The says she usually has to initiate feeding him each meal and then oftentimes will take over. Family went and saw him today and he was poorly responsive compared to usual. He is not verbal at baseline but is typically alert. Work-up in the ED showed a blood pressure of systolic in the 90s he was mildly tachycardic. He had a leukocytosis. Chemistry showed some what appeared to be some volume depletion. BNP was elevated. Chest x-ray was read as CHF and mild bibasilar infiltrates or atelectasis. Urinal with dehydration findings hyaline casts. CT brain with moderate atrophy and chronic ischemic changes remote infarcts but nothing acute. 11/17 No overnight event or new complaints. Leukocytosis improving. chemistry panel pending. Blood culture still pending. 11/18 Patient doing well. Awake and answers questions. No new complaints or overnight events. Chest x-ray is suspicious for fibrosis. Will obtain CT to further clarify. Review of Systems: denies headache/fever/chills/nausea/vomiting/chest or abdominal pain/cough/dyspnea/diarrhea. Otherwise see above. Constitutional Vitals: Vital Signs Temp Pulse Resp BP Pulse Ox 98 F 80 24 H 105/76 95 11/18/20 03:00 11/18/20 03:00 11/18/20 03:00 11/18/20 03:00 11/18/20 03:00 Period Temp Pulse Resp BP Sys/Iglesias Pulse Ox Last 24 Hr 97.4 F-98.4 F 79-93 24-28 91-132/59-79 94-96 Intake and Output 11/17/20 11/18/20 11/18/20 21:59 05:59 13:59 Intake Total 50 530 Output Total 400 Balance -350 530 Weight 85.729 kg Intake & Output: Intake & Output 11/17/20 11/18/20 11/18/20 21:59 05:59 13:59 Intake Total 50 530 Output Total 400 Balance -350 530 Weight 85.729 kg Intake: IV 50 50 Zosyn 3.375 gm In Dextrose 5% 50 50 in Water 50 ml @ 100 mls/hr IV Q6H [facility] Rx#:[id number] Oral 480 Output: Urine Catheter Amount 400 Other: Meal Dinner Nourishment/Supplement Percent of Meal Consumed 100% 100% Feeding Ability Independent Urine Appearance Clear Urine Color Dark [place] Stool Size Moderate Stool Color Brown Stool Consistency Soft Formed Exam: General: Awake , no acute Distress Eyes/N/T: EOMI, Head/Neck: neck supple, CV: RRR, No murmurs, Pulm: mild rales right lateral, no wheezing Abd: soft, nontender, +BS x4 Ext: no clubbing/cyanosis/edema Neuro: Awake and answers to questions appropriately, moves extremities and follows commands Skin: warm/dry OBJ DATA Labs CBC & Chem 7: 11/18/20 05:30 11/18/20 05:30 Labs: Abnormal Lab Results 11/18/20 11/18/20 11/17/20 05:30 05:30 05:22 WBC 13.3 H RBC 4.43 L Hgb 12.4 L Hct 40.0 L MCHC RDW 15.9 H MPV 10.7 H Neut % (Auto) 81.6 H Lymph % (Auto) 9.8 L Lymph # (Auto) 1.31 L [place] # (Auto) Seg Neutrophils % Lymphocytes % Absolute Neutrophils 10.85 H RBC Morphology Anisocytosis Chloride 110 H Carbon Dioxide BUN Glucose Phosphorus 2.1 L Total Bilirubin Direct Bilirubin GGT 86 H Lactate Dehydrogenase 255 H C-Reactive Protein NT-Pro-B Natriuret Pep Albumin 2.2 L Globulin 4.1 H Albumin/Globulin Ratio 0.5 L Procalcitonin 0.42 H Urine Appearance Urine Protein Urine Bilirubin Urine Urobilinogen Urine RBC Urine WBC Hyaline Casts Granular Casts Urine Mucus 11/17/20 11/17/20 11/17/20 05:22 05:13 05:13 WBC 15.1 H RBC 4.47 L Hgb 12.4 L Hct 39.9 L MCHC RDW 16.0 H MPV 10.8 H Neut % (Auto) Lymph % (Auto) Lymph # (Auto) [place] # (Auto) Seg Neutrophils % 81 H Lymphocytes % 10 L Absolute Neutrophils RBC Morphology Abnormal A Anisocytosis 1+ A Chloride 109 H Carbon Dioxide 21 L BUN 25 H Glucose Phosphorus Total Bilirubin 1.5 H Direct Bilirubin 0.5 H GGT 78 H Lactate Dehydrogenase 239 H C-Reactive Protein 27.60 H NT-Pro-B Natriuret Pep Albumin 2.5 L Globulin Albumin/Globulin Ratio 0.7 L Procalcitonin Urine Appearance Urine Protein Urine Bilirubin Urine Urobilinogen Urine RBC Urine WBC Hyaline Casts Granular Casts Urine Mucus 11/16/20 11/16/20 11/16/20 17:18 17:17 12:54 WBC RBC Hgb Hct MCHC RDW MPV Neut % (Auto) Lymph % (Auto) Lymph # (Auto) [place] # (Auto) Seg Neutrophils % 87 H Lymphocytes % 7 L Absolute Neutrophils RBC Morphology Abnormal A Anisocytosis 1+ A Chloride Carbon Dioxide BUN Glucose Phosphorus Total Bilirubin Direct Bilirubin GGT Lactate Dehydrogenase C-Reactive Protein NT-Pro-B Natriuret Pep Albumin Globulin Albumin/Globulin Ratio Procalcitonin 0.43 H Urine Appearance Hazy A Urine Protein 100 A Urine Bilirubin 2.0 A Urine Urobilinogen 4.0 A Urine RBC 56 H Urine WBC 5 H Hyaline Casts 35 H Granular Casts 7 H Urine Mucus Many A 11/16/20 11/16/20 11/16/20 11:36 11:36 11:36 WBC RBC Hgb Hct MCHC RDW MPV Neut % (Auto) Lymph % (Auto) Lymph # (Auto) [place] # (Auto) Seg Neutrophils % Lymphocytes % Absolute Neutrophils RBC Morphology Anisocytosis Chloride 110 H Carbon Dioxide 19 L BUN 25 H Glucose 158 H Phosphorus Total Bilirubin 2.8 H Direct Bilirubin GGT Lactate Dehydrogenase C-Reactive Protein 32.30 H NT-Pro-B Natriuret Pep 2722.0 H Albumin 2.5 L Globulin 4.3 H Albumin/Globulin Ratio 0.6 L Procalcitonin Urine Appearance Urine Protein Urine Bilirubin Urine Urobilinogen Urine RBC Urine WBC Hyaline Casts Granular Casts Urine Mucus 11/16/20 11:36 WBC 17.1 H RBC Hgb Hct MCHC 30.8 L RDW 16.4 H MPV 11.1 H Neut % (Auto) 87.9 H Lymph % (Auto) 4.7 L Lymph # (Auto) 0.80 L [place] # (Auto) 1.22 H Seg Neutrophils % Lymphocytes % Absolute Neutrophils 15.07 H RBC Morphology Anisocytosis Chloride Carbon Dioxide BUN Glucose Phosphorus Total Bilirubin Direct Bilirubin GGT Lactate Dehydrogenase C-Reactive Protein NT-Pro-B Natriuret Pep Albumin Globulin Albumin/Globulin Ratio Procalcitonin Urine Appearance Urine Protein Urine Bilirubin Urine Urobilinogen Urine RBC Urine WBC Hyaline Casts Granular Casts Urine Mucus Meds: Medications Acetaminophen (Acetaminophen 325 Mg Tablet) 650 mg PO Q6HP PRN PRN Reason: PAIN/FEVER > 101 Last Admin: 11/18/20 06:52 Dose: 650 mg Documented by: Albuterol/Ipratropium (Ipratropium/Albuterol 3 Ml Ampul.Neb) 3 ml NEB Q4HP PRN PRN Reason: Shortness Of Breath Docusate Sodium (Docusate Sodium 100 Mg Capsule) 100 mg PO BID [facility] Last Admin: 11/17/20 21:28 Dose: Not Given Documented by: Enoxaparin Sodium (Enoxaparin 40 Mg/0.4 Ml Syringe) 40 mg SQ DAILY [facility] Last Admin: 11/17/20 08:54 Dose: 40 mg Documented by: Potassium Chloride 40 meq/ (Dextrose) 520 mls @ 130 mls/hr IV UD PRN PRN Reason: Potassium < 3 Magnesium Sulfate (Magnesium Sulfate) 2 gm in 50 mls @ 50 mls/hr IV UD PRN PRN Reason: Magnesium </= 1.6 Piperacillin Sod/Tazobactam (Sod 3.375 gm/ Dextrose) 50 mls @ 100 mls/hr IV Q6H [facility]; Protocol Last Admin: 11/18/20 06:33 Dose: 100 mls/hr Documented by: Mupirocin (Mupirocin Oint 2% 22gm) 1 dose NARES BID [facility] Last Admin: 11/17/20 21:27 Dose: 1 dose Documented by: Ondansetron HCl (Ondansetron 4 Mg/2 Ml Vial) 4 mg IV Q4HP PRN PRN Reason: Nausea And Vomiting Pantoprazole Sodium (Pantoprazole 40 Mg Tablet) 40 mg PO QAMAC [facility] Last Admin: 11/18/20 06:52 Dose: 40 mg Documented by: Polyethylene Glycol (Polyethylene Glycol 3350 17 Gm Packet) 17 gm PO DAILYP PRN PRN Reason: Constipation Potassium Chloride (Potassium Chloride 20 Meq Tablet) 40 meq PO UD PRN PRN Reason: Potssium is 3-3.5 Potassium Chloride (Potassium Chloride 20 Meq Tablet) 40 meq PO UD PRN PRN Reason: Potassium < 3 Senna (Sennosides 1 Tablet) 2 tab PO DAILYP PRN PRN Reason: Constipation Sodium Chloride (0.9 % Sodium Chloride 10 Ml Syringe) 10 ml IV Q8 [facility] Last Admin: 11/18/20 06:33 Dose: 10 ml Documented by: A/P Narrative A/P Narrative: A: *Encephalopathy(decreased LOC) superimposed on advanced dementia: Improved -CT brain with mod atrophy and old infarcts *Advanced dementia: - *Leukocytosis (no bandemia, afebrile): Infectious (?PNA atypical) vs other -RVP/covid neg -PCT(mildly)/CRP elevated -slowly improving *likely interstitial Fibrosis: *Volume depletion: improved *COPD: Stopped using inhalers *PAM: Stopped using CPAP, could not tolerate *h/o CVA: stopped taking asa/statin *CAD: pt Stopped taking cardiac meds *Patient only takes Tylenol these days per family, stopped medications he has been on in the past P: -empiric abx, pending BC -MRSA decolonizaton -CT chest -CM for placement -PT/OT -ppx: lovenox DNR Time Spent With Patient Time: Total time spent is greater than 50% in coordination of care (as documented) at patient's floor/unit and/or counseling patient: QUALITY Stroke Symptom Onset Unknown: No VTE Deep Vein Thrombosis/Pulmonary Embolism Present on Admission: No
[2020-11-18] MEDS: ENOXAPARIN 40 MG/0.4 ML SYRINGE SQ SCH (09:02)
[2020-11-18] MEDS: PHOSPHORUS 250 MG TABLET PO SCH ×2 (09:02→21:33)
[2020-11-18] MEDS: MUPIROCIN OINT 2% 22GM NARES SCH ×2 (09:03→21:31)
[2020-11-18] MEDS: DOCUSATE SODIUM 100 MG CAPSULE PO SCH ×2 (09:03→21:33)
--- NOTE | 2020-11-18 11:16 | Discharge Summary ---
Discharge Provider Provider Patient information: Note initiated : 11/18/20 at 11:14 am Service Date, if different from initiated Date: [] Patient: Cody Martin 80 y/o M admitted on 11/16/20 for Altered loc, hypotension. Chief Complaint: [] Date of admission: 11/16/20 17:41 Primary care physician: Unknown Unknown Consults: 11/16/20 Consult to Physician [CONS] Stat Comment: Consulting Provider: Nadir Swan Reason For Exam: Physician to Consult Discharge Meds Discharge Medications Home Medications acetaminophen 1,000 mg PO BID 11/16/20 [History Confirmed 11/16/20 Last Taken 11/12/20 08:00] COURSE Hospital Course Hospital course: Interval history: History of present illness: Mr. Martin is a 80 year old M Presents to the ED with decreased level of consciousness. Patient has dementia and was recently placed in [facility] on Thursday. Over the past few days he is gradually declined and become less responsive. And is not feeding himself. The says she usually has to initiate feeding him each meal and then oftentimes will take over. Family went and saw him today and he was poorly responsive compared to usual. He is not verbal at baseline but is typically alert. Work-up in the ED showed a blood pressure of systolic in the 90s he was mildly tachycardic. He had a leukocytosis. Chemistry showed some what appeared to be some volume depletion. BNP was elevated. Chest x-ray was read as CHF and mild bibasilar infiltrates or atelectasis. Urinal with dehydration findings hyaline casts. CT brain with moderate atrophy and chronic ischemic changes remote infarcts but nothing acute. 11/17 No overnight event or new complaints. Leukocytosis improving. chemistry panel pending. Blood culture still pending. 11/18 Patient doing well. Awake and answers questions. No new complaints or overnight events. Chest x-ray is suspicious for fibrosis. Will obtain CT to further clarify. A: *Encephalopathy(decreased LOC) superimposed on advanced dementia: Improved -CT brain with mod atrophy and old infarcts *Advanced dementia: - *Leukocytosis (no bandemia, afebrile): Infectious (?PNA atypical) vs other -RVP/covid neg -PCT(mildly)/CRP elevated -slowly improving *likely interstitial Fibrosis: *Volume depletion: improved *COPD: Stopped using inhalers *PAM: Stopped using CPAP, could not tolerate *h/o CVA: stopped taking asa/statin *CAD: pt Stopped taking cardiac meds *Patient only takes Tylenol these days per family, stopped medications he has been on in the past Discharge diagnosis: enCephalopathy dense dementia pulmonary fibrosis volume depletion Secondary discharge diagnosis: COPD PAM history of stroke CAD Time Spent with Patient Time attestation: Total time spent providing and/or coordinating discharge services: Time spent: Greater than 30 minutes EXAM Constitutional Vitals: Temp Pulse Resp BP Pulse Ox 97.9 F 80 22 106/70 94 11/18/20 07:00 11/18/20 07:00 11/18/20 07:00 11/18/20 07:00 11/18/20 07:00 Discharge Data Data Completed and Pending Labs on day of discharge: Labs from last 24 hours 11/18/20 11/18/20 11/18/20 05:30 05:30 05:30 WBC 13.3 H RBC 4.43 L Hgb 12.4 L Hct 40.0 L MCV 90.3 MCH 28.0 MCHC 31.0 RDW 15.9 H Plt Count 262 MPV 10.7 H Neut % (Auto) 81.6 H Lymph % (Auto) 9.8 L [place] % (Auto) 6.6 Eos % (Auto) 1.6 Baso % (Auto) 0.4 Lymph # (Auto) 1.31 L [place] # (Auto) 0.88 Eos # (Auto) 0.21 Baso # (Auto) 0.05 Absolute Neutrophils 10.85 H Sodium 141 Potassium 3.8 Chloride 110 H Carbon Dioxide 22 Anion Gap 9.0 BUN 23 Creatinine 0.9 GFR Calculation 79 Glucose 105 Uric Acid 3.4 Calcium 8.8 Phosphorus 2.1 L Magnesium 2.1 Total Bilirubin 0.8 Direct Bilirubin 0.2 GGT 86 H AST 28 ALT 20 Alkaline Phosphatase 111 Lactate Dehydrogenase 255 H C-Reactive Protein 18.50 H Total Protein 6.3 Albumin 2.2 L Globulin 4.1 H Albumin/Globulin Ratio 0.5 L Triglycerides 92 Preliminary micro results at discharge 11/16/20 17:00 Blood Culture - Preliminary Blood 11/16/20 16:34 Blood Culture - Preliminary Blood 11/17/20 14:20 Gram Stain - Preliminary Sputum source - Aspirate Discharge Plan Patient/Caregiver Discharge Instructions Activity: increase activity as tolerated Diet: Regular Diet Activity Restrictions/Additional Instructions: Follow-up with PCP in 3 to 7 days Prescriptions: Continued acetaminophen 500 mg Tablet 1,000 mg PO BID RF: 0 Follow Up Plan Follow up with: Unknown,Unknown [Primary Care Provider] - Patient Disposition: Xfer SNF Prognosis: Undetermined Rehab Potential: Fair I certify that the patient requires SNF services: Yes Overall status at discharge: patient is progressing back to baseline QUALITY VTE Deep Vein Thrombosis/Pulmonary Embolism Present on Admission: No
--- NOTE | 2020-11-18 17:02 | Cat Scan Report ---
CLINICAL INFORMATION: Moderate interstitial disease on plain film COMPARISON: Plain films 11/18/2020 TECHNIQUE: 0.625 mm axial slices were obtained from the lung apices through the bases without intravenous contrast. 2.5 mm Sagittal, coronal and axial reformatted images were processed and reviewed at bone, lung and soft tissue windows. 7 mm axial MIP images were also reconstructed to optimize pulmonary nodule detection.The exam was performed using radiation dose optimization techniques including, but not limited to, automated exposure control, adjustment of the mA and/or kV according to patient size and use of iterative reconstruction technique. FINDINGS: Pulmonary parenchymal windows show scattered interstitial fibrosis throughout both upper, lower and right middle lobes - most heavily concentrated in the lower lobes and left upper lobe. The left upper lobe, there is a moderate region of cicitration tubular bronchiectasis in the paramediastinal region. This would predispose to recurrent infection. No nodules appreciated. The pleural spaces are normal. The mediastinal windows show mild enlargement of the central pulmonary artery with the main pulmonary diameter of 3.2 cm. This is compatible with pulmonary hypertension. The heart is moderately enlarged with calcific plaque in the coronary arteries and bypass grafts noted. There is no adenopathy in the mediastinal, hilar or axillary regions. Esophagus is grossly normal. The thyroid is unremarkable. Bone windows show mild chronic compression fractures throughout the thoracic spine. Images through the superior abdomen show no significant abnormality. IMPRESSION: 1. Scattered interstitial fibrosis throughout the periphery of both upper, lower and right middle lobes. Moderate region of chronic tubular bronchiectasis in the paramediastinal left upper lobe would predispose to recurrent infection. No evidence of acute inflammation or infection. 2. Mild central pulmonary enlargement compatible with pulmonary hypertension related to chronic lung disease 3. Moderate cardiomegaly with heavy calcific plaque in the coronary arteries and bypass grafts. 4. 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 Interpreted and Authenticated by: Talon Nunez 11/18/20
[2020-11-19] MEDS: 0.9 % SODIUM CHLORIDE 10 ML SYRINGE IV SCH ×3 (06:21→20:25)
[2020-11-19] MEDS: PIPERACILLIN SODIUM/TAZOBACTAM 3.375 GM in DEXTROSE 5% IN WATER 50 ML IV SCH (06:21)
[2020-11-19 06:51] LABS: Basophils # (Auto) 0.04 K/mcL (0.00-0.20); Basophils % (Auto) 0.3 % (0.0-2.0); Eosinophils # (Auto) 0.31 K/mcL (0.00-0.70); Eosinophils % (Auto) 2.5 % (0.0-7.0); Hematocrit 38.8 % (41.0-55.0); Hemoglobin 11.8 g/dL (13.5-16.5); Lymphocytes # (Auto) 1.65 K/mcL (1.50-4.80); Lymphocytes % (Auto) 13.4 % (15.0-49.0); Mean Cell Volume 92.6 fL (80.0-100.0); Mean Corpuscular HGB Conc 30.4 g/dL (31.0-36.0); Mean Platelet Volume 10.8 fL (7.4-10.4); Monocytes # (Auto) 0.98 K/mcL (0.10-0.90); Neutrophils % (Auto) 75.8 % (38.0-78.0); Platelet Count 249 K/mcL (140-440); RBC 4.19 M/mcL (4.50-5.90); Red Cell Distribution Width 16.3 % (11.5-14.5); WBC 12.3 K/mcL (4.5-11.0)
--- NOTE | 2020-11-19 06:54 | Internal Med Progress Note ---
SUBJECTIVE Subjective Patient information: Note initiated : 11/19/20 at 6:50 am Service Date, if different from initiated Date: [] Patient: Cody Martin 80 y/o M admitted on 11/16/20 for Altered loc, hypotension. Chief Complaint: [] Interval history: History of present illness: Mr. Martin is a 80 year old M Presents to the ED with decreased level of consciousness. Patient has dementia and was recently placed in [facility] on Thursday. Over the past few days he is gradually declined and become less responsive. And is not feeding himself. The says she usually has to initiate feeding him each meal and then oftentimes will take over. Family went and saw him today and he was poorly responsive compared to usual. He is not verbal at baseline but is typically alert. Work-up in the ED showed a blood pressure of systolic in the 90s he was mildly tachycardic. He had a leukocytosis. Chemistry showed some what appeared to be some volume depletion. BNP was elevated. Chest x-ray was read as CHF and mild bibasilar infiltrates or atelectasis. Urinal with dehydration findings hyaline casts. CT brain with moderate atrophy and chronic ischemic changes remote infarcts but nothing acute. 11/17 No overnight event or new complaints. Leukocytosis improving. chemistry panel pending. Blood culture still pending. 11/18 Patient doing well. Awake and answers questions. No new complaints or overnight events. Chest x-ray is suspicious for fibrosis. Will obtain CT to further clarify. 11/19 No overnight event or new complaints. CT abdomen pelvis done today to rule out any abdominal source of infection. Leukocytosis continues to improve slowly on antibiotics. Review of Systems: denies headache/fever/chills/nausea/vomiting/chest or abdominal pain/cough/dyspnea/diarrhea. Otherwise see above. Constitutional Vitals: Vital Signs Temp Pulse Resp BP Pulse Ox 97.8 F 71 26 H 112/71 94 11/19/20 02:54 11/19/20 02:54 11/19/20 02:54 11/19/20 02:54 11/19/20 02:54 Period Temp Pulse Resp BP Sys/Iglesias Pulse Ox Last 24 Hr 97.4 F-98 F 69-90 - 88-112/55-72 94-97 Intake and Output 11/18/20 11/19/2011/19/21 21:59 05:59 13:59 Intake Total 50 530 Output Total 1 Balance 49 530 Weight 86.863 kg Intake & Output: Intake & Output 11/18/20 11/19/20 11/19/20 21:59 05:59 13:59 Intake Total 50 530 Output Total 1 Balance 49 530 Weight 86.863 kg Intake: IV 50 50 Zosyn 3.375 gm In Dextrose 5% 50 50 in Water 50 ml @ 100 mls/hr IV Q6H [facility] Rx#:[id number] Oral 480 Output: # of times incontinent of urine 1 Other: Stool Size Copious Stool Color Brown Stool Consistency Liquid # Voids 1 # Bowel Movements 2 # of times incontinent of 2 Bowels Exam: General: Awake , no acute Distress Eyes/N/T: EOMI, Head/Neck: neck supple, CV: RRR, No murmurs, Pulm: mild rales right lateral, no wheezing Abd: soft, nontender, +BS x4 Ext: no clubbing/cyanosis/edema Neuro: Awake and answers to questions appropriately, moves extremities and follows commands Skin: warm/dry OBJ DATA Labs CBC & Chem 7: 11/19/20 05:13 11/19/20 05:27 Labs: Abnormal Lab Results 11/18/20 11/18/20 11/18/20 05:30 05:30 05:30 WBC 13.3 H RBC 4.43 L Hgb 12.4 L Hct 40.0 L MCHC RDW 15.9 H MPV 10.7 H Neut % (Auto) 81.6 H Lymph % (Auto) 9.8 L Lymph # (Auto) 1.31 L [place] # (Auto) Seg Neutrophils % Lymphocytes % Absolute Neutrophils 10.85 H RBC Morphology Anisocytosis Chloride 110 H Carbon Dioxide BUN Glucose Phosphorus 2.1 L Total Bilirubin Direct Bilirubin GGT 86 H Lactate Dehydrogenase 255 H C-Reactive Protein 18.50 H NT-Pro-B Natriuret Pep Albumin 2.2 L Globulin 4.1 H Albumin/Globulin Ratio 0.5 L Procalcitonin Urine Appearance Urine Protein Urine Bilirubin Urine Urobilinogen Urine RBC Urine WBC Hyaline Casts Granular Casts Urine Mucus 11/17/20 11/17/20 11/17/20 05:22 05:22 05:13 WBC RBC Hgb Hct MCHC RDW MPV Neut % (Auto) Lymph % (Auto) Lymph # (Auto) [place] # (Auto) Seg Neutrophils % Lymphocytes % Absolute Neutrophils RBC Morphology Anisocytosis Chloride 109 H Carbon Dioxide 21 L BUN 25 H Glucose Phosphorus Total Bilirubin 1.5 H Direct Bilirubin 0.5 H GGT 78 H Lactate Dehydrogenase 239 H C-Reactive Protein 27.60 H NT-Pro-B Natriuret Pep Albumin 2.5 L Globulin Albumin/Globulin Ratio 0.7 L Procalcitonin 0.42 H Urine Appearance Urine Protein Urine Bilirubin Urine Urobilinogen Urine RBC Urine WBC Hyaline Casts Granular Casts Urine Mucus 11/17/20 11/16/20 11/16/20 05:13 17:18 17:17 WBC 15.1 H RBC 4.47 L Hgb 12.4 L Hct 39.9 L MCHC RDW 16.0 H MPV 10.8 H Neut % (Auto) Lymph % (Auto) Lymph # (Auto) [place] # (Auto) Seg Neutrophils % 81 H 87 H Lymphocytes % 10 L 7 L Absolute Neutrophils RBC Morphology Abnormal A Abnormal A Anisocytosis 1+ A 1+ A Chloride Carbon Dioxide BUN Glucose Phosphorus Total Bilirubin Direct Bilirubin GGT Lactate Dehydrogenase C-Reactive Protein NT-Pro-B Natriuret Pep Albumin Globulin Albumin/Globulin Ratio Procalcitonin 0.43 H Urine Appearance Urine Protein Urine Bilirubin Urine Urobilinogen Urine RBC Urine WBC Hyaline Casts Granular Casts Urine Mucus 11/16/20 11/16/20 11/16/20 12:54 11:36 11:36 WBC RBC Hgb Hct MCHC RDW MPV Neut % (Auto) Lymph % (Auto) Lymph # (Auto) [place] # (Auto) Seg Neutrophils % Lymphocytes % Absolute Neutrophils RBC Morphology Anisocytosis Chloride Carbon Dioxide BUN Glucose Phosphorus Total Bilirubin Direct Bilirubin GGT Lactate Dehydrogenase C-Reactive Protein 32.30 H NT-Pro-B Natriuret Pep 2722.0 H Albumin Globulin Albumin/Globulin Ratio Procalcitonin Urine Appearance Hazy A Urine Protein 100 A Urine Bilirubin 2.0 A Urine Urobilinogen 4.0 A Urine RBC 56 H Urine WBC 5 H Hyaline Casts 35 H Granular Casts 7 H Urine Mucus Many A 11/16/20 11/16/20 11:36 11:36 WBC 17.1 H RBC Hgb Hct MCHC 30.8 L RDW 16.4 H MPV 11.1 H Neut % (Auto) 87.9 H Lymph % (Auto) 4.7 L Lymph # (Auto) 0.80 L [place] # (Auto) 1.22 H Seg Neutrophils % Lymphocytes % Absolute Neutrophils 15.07 H RBC Morphology Anisocytosis Chloride 110 H Carbon Dioxide 19 L BUN 25 H Glucose 158 H Phosphorus Total Bilirubin 2.8 H Direct Bilirubin GGT Lactate Dehydrogenase C-Reactive Protein NT-Pro-B Natriuret Pep Albumin 2.5 L Globulin 4.3 H Albumin/Globulin Ratio 0.6 L Procalcitonin Urine Appearance Urine Protein Urine Bilirubin Urine Urobilinogen Urine RBC Urine WBC Hyaline Casts Granular Casts Urine Mucus Meds: Medications Acetaminophen (Acetaminophen 325 Mg Tablet) 650 mg PO Q6HP PRN PRN Reason: PAIN/FEVER > 101 Last Admin: 11/18/20 18:04 Dose: 650 mg Documented by: Albuterol/Ipratropium (Ipratropium/Albuterol 3 Ml Ampul.Neb) 3 ml NEB Q4HP PRN PRN Reason: Shortness Of Breath Docusate Sodium (Docusate Sodium 100 Mg Capsule) 100 mg PO BID [facility] Last Admin: 11/18/20 21:33 Dose: Not Given Documented by: Enoxaparin Sodium (Enoxaparin 40 Mg/0.4 Ml Syringe) 40 mg SQ DAILY [facility] Last Admin: 11/18/20 09:02 Dose: 40 mg Documented by: Potassium Chloride 40 meq/ (Dextrose) 520 mls @ 130 mls/hr IV UD PRN PRN Reason: Potassium < 3 Magnesium Sulfate (Magnesium Sulfate) 2 gm in 50 mls @ 50 mls/hr IV UD PRN PRN Reason: Magnesium </= 1.6 Piperacillin Sod/Tazobactam (Sod 3.375 gm/ Dextrose) 50 mls @ 100 mls/hr IV Q6H [facility]; Protocol Last Admin: 11/19/20 06:21 Dose: 100 mls/hr Documented by: Mupirocin (Mupirocin Oint 2% 22gm) 1 dose NARES BID [facility] Last Admin: 11/18/20 21:31 Dose: 1 dose Documented by: Ondansetron HCl (Ondansetron 4 Mg/2 Ml Vial) 4 mg IV Q4HP PRN PRN Reason: Nausea And Vomiting Pantoprazole Sodium (Pantoprazole 40 Mg Tablet) 40 mg PO QAMAC [facility] Last Admin: 11/18/20 06:52 Dose: 40 mg Documented by: Polyethylene Glycol (Polyethylene Glycol 3350 17 Gm Packet) 17 gm PO DAILYP PRN PRN Reason: Constipation Potassium Chloride (Potassium Chloride 20 Meq Tablet) 40 meq PO UD PRN PRN Reason: Potssium is 3-3.5 Potassium Chloride (Potassium Chloride 20 Meq Tablet) 40 meq PO UD PRN PRN Reason: Potassium < 3 Senna (Sennosides 1 Tablet) 2 tab PO DAILYP PRN PRN Reason: Constipation Sodium Chloride (0.9 % Sodium Chloride 10 Ml Syringe) 10 ml IV Q8 [facility] Last Admin: 11/19/20 06:21 Dose: 10 ml Documented by: A/P Narrative A/P Narrative: A: *Encephalopathy(decreased LOC) superimposed on advanced dementia: Improved -CT brain with mod atrophy and old infarcts *Advanced dementia: - *Leukocytosis (no bandemia, afebrile): Infectious vs other -RVP/covid neg -PCT(mildly)/CRP elevated -CT chest w/fibrosis & acute infiltrate -slowly improving *Pulmonary Fibrosis/Bronchiectasis: *Volume depletion: improved *COPD: Stopped using inhalers *PAM: Stopped using CPAP, could not tolerate *h/o CVA: stopped taking asa/statin *CAD: pt Stopped taking cardiac meds *Patient only takes Tylenol these days per family, stopped medications he has been on in the past P: -empiric abx, pending BC -MRSA decolonizaton -CT a/p -CM for placement -PT/OT -ppx: lovenox DNR Time Spent With Patient Time: Total time spent is greater than 50% in coordination of care (as documented) at patient's floor/unit and/or counseling patient: QUALITY Stroke Symptom Onset Unknown: No VTE Deep Vein Thrombosis/Pulmonary Embolism Present on Admission: No
[2020-11-19 07:56] LABS: ALT/SGPT 17 U/L (<40); AST/SGOT 18 U/L (<40); Albumin 2.3 gm/dL (3.2-5.2); Albumin/Globulin Ratio 0.6 (1.0-2.3); Alkaline Phosphatase 106 U/L (39-117); Bilirubin,Direct < 0.2 mg/dL (0-0.3); Bilirubin,Total 0.5 mg/dL (0.1-1.0); Blood Urea Nitrogen 18 mg/dL (8-23); Calcium 8.9 mg/dL (8.6-10.4); Carbon Dioxide 21 mmol/L (22-30); Chloride 114 mmol/L (96-108); Glomerular Filtration Rate 79; Glucose 92 mg/dL (70-105); Lactate Dehydrogenase 260 U/L (135-225); Phosphorous 2.3 mg/dL (2.5-4.5); Triglycerides 111 mg/dL (<150)
[2020-11-19] MEDS: ENOXAPARIN 40 MG/0.4 ML SYRINGE SQ SCH (08:36)
[2020-11-19] MEDS: PANTOPRAZOLE 40 MG TABLET PO SCH (08:36)
[2020-11-19] MEDS: MUPIROCIN OINT 2% 22GM NARES SCH ×2 (08:36→20:25)
[2020-11-19] MEDS: ACETAMINOPHEN 325 MG TABLET PO PRN ×3 (08:50→23:02)
[2020-11-19] MEDS ORDERED: CEFEPIME 2 GM VIAL IV SCH (09:00)
--- NOTE | 2020-11-19 09:51 | Cat Scan Report ---
CLINICAL INFORMATION: Infection COMPARISON: None. TECHNIQUE: 0.625 mm helical slices were obtained from the mid heart through the subtrochanteric regions. Following reconstruction, 2.5 mm sagittal, coronal and axial reformatted images were processed and reviewed at bone and soft tissue windows.The exam was performed using radiation dose optimization techniques including, but not limited to, automated exposure control, adjustment of the mA and/or kV according to patient size and use of iterative reconstruction technique. FINDINGS: Lung bases show subsegmental atelectasis in both posterior lower lobes. Left diaphragm is moderately elevated. The heart is moderately enlarged - as previously seen. Pacemaker leads in stable satisfactory position. Abdominal images show the noncontrasted liver is normal in size and attenuation. There are cluster of small granulomas in the extrahepatic space adjacent inferior lobe ranging up to 2 cm. These should be insignificant. The gallbladder is surgically absent. Intrahepatic and common bile ducts are normal caliber. Mild pancreatic atrophy noted. Both kidneys are normal and symmetric in size, position, configuration and attenuation: left kidney is 11.2 cm in length and the right kidney is 11.3 cm in length. Scattered simple cysts noted in both kidneys. The spleen, adrenal glands and aorta are normal in size configuration and attenuation without focal lesion. There is no free air, free fluid or adenopathy Pelvic images show moderate prostate enlargement (6.1 x 4.5 cm). There is mild wall thickening of the urinary bladder suggesting chronic bladder outlet narrowing. Multiple sigmoid diverticuli appreciated, but no CT evidence for diverticulitis. The remaining large bowel, appendix region small bowel and stomach are grossly normal. Bone windows show mild chronic wedging with endplate irregularity the lower thoracic and lumbar vertebral bodies compatible with chronic Scheuermann's disease. Moderate bilateral inguinal hernias containing only mesenteric fat. IMPRESSION: 1. No definite cause identified for infection. Moderate prostate hypertrophy with diffuse urinary bladder wall thickening noted. Patient is at risk for cystitis. 2. Mild pancreatic atrophy. 3. Small calcified granulomas the extrahepatic soft tissues adjacent inferior right hepatic lobe. This is almost certainly clinically insignificant. 4. Sigmoid diverticulosis, but no evidence of diverticulitis 5. Moderate bilateral inguinal hernias containing only mesenteric fat. Interpreted and Authenticated by: Talon Nunez 11/19/20
--- NOTE | 2020-11-19 10:17 | Ultrasound Report ---
CLINICAL INFORMATION: Evaluate for foreign body and thrombus COMPARISON: None. TECHNIQUE: FINDINGS: Jugular, brachiocephalic, visualized subclavian, brachial, radial, ulnar, antecubital, cephalic and basilic veins are all widely patent and easily compressible on color and spectral Doppler. IMPRESSION: Normal exam. No evidence of thrombus . Foreign body was not identified. Interpreted and Authenticated by: Talon Nunez 11/19/20
--- NOTE | 2020-11-19 12:04 | Event Note ---
Event Note Event Note: There was concern that part of the peripheral IV catheter might have broken off and remained in the patient's vein. We did a ultrasound from the wrist all the way through to jugular as well as a limited echo to assess for any foreign body in the veins or the heart and no foreign body was found.
[2020-11-20] MEDS: 0.9 % SODIUM CHLORIDE 10 ML SYRINGE IV SCH ×3 (06:05→21:14)
[2020-11-20 06:50] LABS: Basophils # (Auto) 0.06 K/mcL (0.00-0.20); Basophils % (Auto) 0.5 % (0.0-2.0); Eosinophils # (Auto) 0.39 K/mcL (0.00-0.70); Eosinophils % (Auto) 3.2 % (0.0-7.0); Hematocrit 37.2 % (41.0-55.0); Hemoglobin 11.1 g/dL (13.5-16.5); Lymphocytes # (Auto) 1.52 K/mcL (1.50-4.80); Lymphocytes % (Auto) 12.7 % (15.0-49.0); Mean Corpuscular HGB Conc 29.8 g/dL (31.0-36.0); Mean Platelet Volume 10.7 fL (7.4-10.4); Monocytes # (Auto) 1.01 K/mcL (0.10-0.90); Monocytes % (Auto) 8.4 % (1.0-12.0); Neutrophils % (Auto) 75.2 % (38.0-78.0); Platelet Count 258 K/mcL (140-440); Red Cell Distribution Width 16.3 % (11.5-14.5)
[2020-11-20 07:36] LABS: Blood Urea Nitrogen 17 mg/dL (8-23); Calcium 8.4 mg/dL (8.6-10.4); Carbon Dioxide 22 mmol/L (22-30); Chloride 110 mmol/L (96-108); Glomerular Filtration Rate 83; Glucose 86 mg/dL (70-105)
[2020-11-20] MEDS: PANTOPRAZOLE 40 MG TABLET PO SCH (07:56)
[2020-11-20] MEDS: ENOXAPARIN 40 MG/0.4 ML SYRINGE SQ SCH (09:01)
[2020-11-20] MEDS: MUPIROCIN OINT 2% 22GM NARES SCH ×2 (09:01→21:14)
--- NOTE | 2020-11-20 14:21 | Internal Med Progress Note ---
SUBJECTIVE Subjective Patient information: Note initiated : 11/20/20 at 2:16 pm Service Date, if different from initiated Date: Patient: Cody Martin 80 y/o M admitted on 11/16/20 for Altered loc, hypotension. Chief Complaint: AMS Interval history: Pt is awake and oriented to his name per family. This is his baseline. and daughter at bedside. Speech evaluated him and modified his diet. Constitutional Vitals: Vital Signs Temp Pulse Resp BP Pulse Ox 97.7 F 76 22 106/65 98 11/20/20 12:00 11/20/20 12:00 11/20/20 12:00 11/20/20 12:00 11/20/20 12:00 Period Temp Pulse Resp BP Sys/Iglesias Pulse Ox Last 24 Hr 97.1 F-98.2 F 65-87 20-32 96-120/60-74 94-98 Intake and Output 11/20/20 11/20/20 11/20/20 05:59 13:59 21:59 Intake Total 520 720 Output Total 2 1 Balance 518 719 Intake & Output: Intake & Output 11/20/20 11/20/20 11/20/20 05:59 13:59 21:59 Intake Total 520 720 Output Total 2 1 Balance 518 719 Intake: Nourishment/Supplement quantity 240 (ml) Oral 520 480 Output: # of times incontinent of urine 2 1 Other: Meal Nourishment/Supplement Percent of Meal Consumed 100% Feeding Ability Total Assistance Urine Appearance Clear Urine Color Bright Yellow Stool Size Small Stool Color Brown Stool Consistency Soft # Voids 1 # Bowel Movements 1 # of times incontinent of 1 1 Bowels Additional findings Additional findings: Exam: General: Awake , no acute Distress Eyes/N/T: EOMI, Head/Neck: neck supple, CV: RRR, No murmurs, Pulm: mild rales right lateral, no wheezing Abd: soft, nontender, +BS x4 Ext: no clubbing/cyanosis/edema Neuro: Awake and answers to questions appropriately, moves extremities and follows commands Skin: warm/dry OBJ DATA Labs CBC & Chem 7: 11/20/20 05:45 11/20/20 05:45 Labs: Abnormal Lab Results 11/20/20 11/20/20 11/19/20 05:45 05:45 05:27 WBC 12.0 H RBC 4.00 L Hgb 11.1 L Hct 37.2 L MCHC 29.8 L RDW 16.3 H MPV 10.7 H Neut % (Auto) Lymph % (Auto) 12.7 L Lymph # (Auto) [place] # (Auto) 1.01 H Absolute Neutrophils 9.03 H Chloride 110 H 114 H Carbon Dioxide 21 L Anion Gap 7.0 L Calcium 8.4 L Phosphorus 2.3 L GGT 76 H Lactate Dehydrogenase 260 H C-Reactive Protein Albumin 2.3 L Globulin 4.0 H Albumin/Globulin Ratio 0.6 L 11/19/20 11/18/20 11/18/20 05:13 05:30 05:30 WBC 12.3 H RBC 4.19 L Hgb 11.8 L Hct 38.8 L MCHC 30.4 L RDW 16.3 H MPV 10.8 H Neut % (Auto) Lymph % (Auto) 13.4 L Lymph # (Auto) [place] # (Auto) 0.98 H Absolute Neutrophils 9.32 H Chloride 110 H Carbon Dioxide Anion Gap Calcium Phosphorus 2.1 L GGT 86 H Lactate Dehydrogenase 255 H C-Reactive Protein 18.50 H Albumin 2.2 L Globulin 4.1 H Albumin/Globulin Ratio 0.5 L 11/18/20 05:30 WBC 13.3 H RBC 4.43 L Hgb 12.4 L Hct 40.0 L MCHC RDW 15.9 H MPV 10.7 H Neut % (Auto) 81.6 H Lymph % (Auto) 9.8 L Lymph # (Auto) 1.31 L [place] # (Auto) Absolute Neutrophils 10.85 H Chloride Carbon Dioxide Anion Gap Calcium Phosphorus GGT Lactate Dehydrogenase C-Reactive Protein Albumin Globulin Albumin/Globulin Ratio Meds: Medications Acetaminophen (Acetaminophen 325 Mg Tablet) 650 mg PO Q6HP PRN PRN Reason: PAIN/FEVER > 101 Last Admin: 11/19/20 23:02 Dose: 650 mg Documented by: Albuterol/Ipratropium (Ipratropium/Albuterol 3 Ml Ampul.Neb) 3 ml NEB Q4HP PRN PRN Reason: Shortness Of Breath Enoxaparin Sodium (Enoxaparin 40 Mg/0.4 Ml Syringe) 40 mg SQ DAILY [facility] Last Admin: 11/20/20 09:01 Dose: 40 mg Documented by: Potassium Chloride 40 meq/ (Dextrose) 520 mls @ 130 mls/hr IV UD PRN PRN Reason: Potassium < 3 Magnesium Sulfate (Magnesium Sulfate) 2 gm in 50 mls @ 50 mls/hr IV UD PRN PRN Reason: Magnesium </= 1.6 Mupirocin (Mupirocin Oint 2% 22gm) 1 dose NARES BID [facility] Last Admin: 11/20/20 09:01 Dose: 1 dose Documented by: Ondansetron HCl (Ondansetron 4 Mg/2 Ml Vial) 4 mg IV Q4HP PRN PRN Reason: Nausea And Vomiting Pantoprazole Sodium (Pantoprazole 40 Mg Tablet) 40 mg PO QAMAC [facility] Last Admin: 11/20/20 07:56 Dose: 40 mg Documented by: Polyethylene Glycol (Polyethylene Glycol 3350 17 Gm Packet) 17 gm PO DAILYP PRN PRN Reason: Constipation Potassium Chloride (Potassium Chloride 20 Meq Tablet) 40 meq PO UD PRN PRN Reason: Potssium is 3-3.5 Potassium Chloride (Potassium Chloride 20 Meq Tablet) 40 meq PO UD PRN PRN Reason: Potassium < 3 Senna (Sennosides 1 Tablet) 2 tab PO DAILYP PRN PRN Reason: Constipation Sodium Chloride (0.9 % Sodium Chloride 10 Ml Syringe) 10 ml IV Q8 [facility] Last Admin: 11/20/20 06:05 Dose: 10 ml Documented by: A/P Narrative A/P Narrative: 80 years old male brought to ED with decreased level of consciousness. Patient has dementia and was recently placed in [facility] , Over the past few days he is gradually declined and become less responsive. # Encephalopathy(decreased LOC) superimposed on advanced dementia: Improved -CT brain with mod atrophy and old infarcts - Blood Cx. Sputum all negative. Dced Empiric Anbx. WBC trending down. # Leukocytosis with (no bandemia, afebrile): WBC 13k. Improved. -RVP/covid neg -PCT(mildly)/CRP elevated -CT chest w/fibrosis & acute infiltrate # Advanced dementia: - Baseline A&Ox his name. Seems like baseline now. - Pt is weak and family like Rehab. # Pulmonary Fibrosis/Bronchiectasis: - No evidence of infection. Dced Anbx. # COPD: Stopped using inhalers # PAM: Stopped using CPAP, could not tolerate # H/o CVA: stopped taking asa/statin # CAD: pt Stopped taking cardiac meds # Nasal MRSA positive. -MRSA decolonization # Patient only takes Tylenol these days per family, stopped medications he has been on in the past # Code. DVT ppx: lovenox Dispo. Rehab. Ready in am. Time Spent With Patient Time: Total time spent is greater than 50% in coordination of care (as documented) at patient's floor/unit and/or counseling patient: QUALITY Stroke Symptom Onset Unknown: No VTE Deep Vein Thrombosis/Pulmonary Embolism Present on Admission: No
[2020-11-20] MEDS: ACETAMINOPHEN 325 MG TABLET PO PRN (17:57)
[2020-11-21] MEDS: 0.9 % SODIUM CHLORIDE 10 ML SYRINGE IV SCH ×2 (06:43→14:34)
[2020-11-21] MEDS: MUPIROCIN OINT 2% 22GM NARES SCH (08:01)
[2020-11-21] MEDS: PANTOPRAZOLE 40 MG TABLET PO SCH (08:01)
[2020-11-21] MEDS: ENOXAPARIN 40 MG/0.4 ML SYRINGE SQ SCH (08:01)
--- NOTE | 2020-11-21 11:44 | Internal Med Progress Note ---
SUBJECTIVE Subjective Patient information: Note initiated : 11/21/20 at 11:41 am Service Date, if different from initiated Date: [] Patient: Cody Martin 80 y/o M admitted on 11/16/20 for Altered loc, hypotension. Chief Complaint: AMS, Weakness Interval history: Pt is feeling well. Still weak. No reported fever, chills, N/V. he is A&Ox his name. Seems comfortable. Constitutional Vitals: Vital Signs Temp Pulse Resp BP Pulse Ox 98.1 F 80 20 102/68 95 11/21/20 08:00 11/21/20 08:00 11/21/20 08:00 11/21/20 08:00 11/21/20 08:00 Period Temp Pulse Resp BP Sys/Iglesias Pulse Ox Last 24 Hr 97.6 F-98.1 F 72-98 20-26 99-106/63-76 92-98 Intake and Output 11/20/20 11/21/20 11/21/20 21:59 05:59 13:59 Intake Total 120 400 600 Output Total 4 4 Balance 116 396 600 Weight 89.539 kg Intake & Output: Intake & Output 11/20/20 11/21/20 11/21/20 21:59 05:59 13:59 Intake Total 120 400 600 Output Total 4 4 Balance 116 396 600 Weight 89.539 kg Intake: Oral 120 400 600 Output: # of times incontinent of urine 4 4 Other: Meal Lunch Breakfast Percent of Meal Consumed 75% 100% Feeding Ability Total Assistance Total Assistance Urine Color Bright Yellow Stool Size Moderate Stool Color Brown Stool Consistency Soft Loose # Voids 1 # Bowel Movements 1 # of times incontinent of 1 Bowels Exam: General: Awake, A&Ox name only , no acute Distress Eyes/N/T: EOMI, Head/Neck: neck supple, CV: RRR, 4/6 holosystolic Murmur. No radiation. Pulm: mild rales right lateral, no wheezing Abd: soft, nontender, +BS x4 Ext: no clubbing/cyanosis. Trace ankle edema Neuro: Awake and answers to questions appropriately, moves extremities and follows commands Skin: warm/dry OBJ DATA Labs CBC & Chem 7: 11/20/20 05:45 11/20/20 05:45 Labs: Abnormal Lab Results 11/20/20 11/20/20 11/19/20 05:45 05:45 05:27 WBC 12.0 H RBC 4.00 L Hgb 11.1 L Hct 37.2 L MCHC 29.8 L RDW 16.3 H MPV 10.7 H Lymph % (Auto) 12.7 L [place] # (Auto) 1.01 H Absolute Neutrophils 9.03 H Chloride 110 H 114 H Carbon Dioxide 21 L Anion Gap 7.0 L Calcium 8.4 L Phosphorus 2.3 L GGT 76 H Lactate Dehydrogenase 260 H Albumin 2.3 L Globulin 4.0 H Albumin/Globulin Ratio 0.6 L 11/19/20 05:13 WBC 12.3 H RBC 4.19 L Hgb 11.8 L Hct 38.8 L MCHC 30.4 L RDW 16.3 H MPV 10.8 H Lymph % (Auto) 13.4 L [place] # (Auto) 0.98 H Absolute Neutrophils 9.32 H Chloride Carbon Dioxide Anion Gap Calcium Phosphorus GGT Lactate Dehydrogenase Albumin Globulin Albumin/Globulin Ratio Meds: Medications Acetaminophen (Acetaminophen 325 Mg Tablet) 650 mg PO Q6HP PRN PRN Reason: PAIN/FEVER > 101 Last Admin: 11/20/20 17:57 Dose: 650 mg Documented by: Albuterol/Ipratropium (Ipratropium/Albuterol 3 Ml Ampul.Neb) 3 ml NEB Q4HP PRN PRN Reason: Shortness Of Breath Enoxaparin Sodium (Enoxaparin 40 Mg/0.4 Ml Syringe) 40 mg SQ DAILY [facility] Last Admin: 11/21/20 08:01 Dose: 40 mg Documented by: Potassium Chloride 40 meq/ (Dextrose) 520 mls @ 130 mls/hr IV UD PRN PRN Reason: Potassium < 3 Magnesium Sulfate (Magnesium Sulfate) 2 gm in 50 mls @ 50 mls/hr IV UD PRN PRN Reason: Magnesium </= 1.6 Mupirocin (Mupirocin Oint 2% 22gm) 1 dose NARES BID [facility] Last Admin: 11/21/20 08:01 Dose: 1 dose Documented by: Ondansetron HCl (Ondansetron 4 Mg/2 Ml Vial) 4 mg IV Q4HP PRN PRN Reason: Nausea And Vomiting Pantoprazole Sodium (Pantoprazole 40 Mg Tablet) 40 mg PO QAMAC [facility] Last Admin: 11/21/20 08:01 Dose: 40 mg Documented by: Polyethylene Glycol (Polyethylene Glycol 3350 17 Gm Packet) 17 gm PO DAILYP PRN PRN Reason: Constipation Potassium Chloride (Potassium Chloride 20 Meq Tablet) 40 meq PO UD PRN PRN Reason: Potssium is 3-3.5 Potassium Chloride (Potassium Chloride 20 Meq Tablet) 40 meq PO UD PRN PRN Reason: Potassium < 3 Senna (Sennosides 1 Tablet) 2 tab PO DAILYP PRN PRN Reason: Constipation Sodium Chloride (0.9 % Sodium Chloride 10 Ml Syringe) 10 ml IV Q8 GIRISH Last Admin: 11/21/20 06:43 Dose: 10 ml Documented by: A/P Narrative A/P Narrative: 80 years old male brought to ED with decreased level of consciousness. Patient has dementia and was recently placed in [facility] , Over the past few days he is gradually declined and become less responsive. # Encephalopathy(decreased LOC) superimposed on advanced dementia: Improved and now at baseline which is A&Ox name -CT brain with mod atrophy and old infarcts - Blood Cx. Sputum all negative. Dced Empiric Anbx. WBC trending down. # Leukocytosis with (no bandemia, afebrile): WBC 13k. Improved. -RVP/covid neg -PCT(mildly)/CRP elevated -CT chest w/fibrosis & acute infiltrate # Advanced dementia: - Baseline A&Ox his name. Seems like baseline now. - Pt is weak and family like Rehab. # Pulmonary Fibrosis/Bronchiectasis: - No evidence of infection. Dced Anbx. # COPD: Stopped using inhalers. On RA now. # PAM: Stopped using CPAP, could not tolerate # H/o CVA: stopped taking asa/statin # CAD: pt Stopped taking cardiac meds # Nasal MRSA positive. -MRSA decolonization # Patient only takes Tylenol these days per family, stopped medications he has been on in the past # Code. DNR/DNI DVT ppx: lovenox Dispo. Ready for Rehab placement. D/w CM Time Spent With Patient Time: Total time spent is greater than 50% in coordination of care (as documented) at patient's floor/unit and/or counseling patient: QUALITY Stroke Symptom Onset Unknown: No VTE Deep Vein Thrombosis/Pulmonary Embolism Present on Admission: No
--- NOTE | 2020-11-21 12:36 | Discharge Summary ---
Discharge Provider Provider Patient information: Note initiated : 11/21/20 at 12:34 pm Service Date, if different from initiated Date: Patient: Cody Martin 80 y/o M admitted on 11/16/20 for Altered loc, hypotension. Chief Complaint: AMS, Weakness Date of admission: 11/16/20 17:41 Discharge date: 11/21/20 Primary care physician: Unknown Unknown Consults: 11/16/20 Consult to Physician [CONS] Stat Comment: Consulting Provider: Nadir Swan Reason For Exam: Physician to Consult 11/20/20 16:17 Consult to Physician [CONS] Routine Comment: Consulting Provider: [facility] Reason For Exam: Physician to Consult Discharge Meds Discharge Medications Home Medications acetaminophen 1,000 mg PO BID 11/16/20 [History Confirmed 11/16/20 Last Taken 11/12/20 08:00] enoxaparin [Lovenox] 40 mg SQ DAILY 15 Days ml 11/21/20 [Rx Last Taken Unknown] COURSE Hospital Course Hospital course: 80 years old male brought to ED with decreased level of consciousness. Patient has dementia and was recently placed in [facility] , Over the past few days he is gradually declined and become less responsive. # Encephalopathy(decreased LOC) superimposed on advanced dementia: Improved and now at baseline which is A&Ox name -CT brain with mod atrophy and old infarcts - Blood Cx. Sputum all negative. Dced Empiric Anbx. WBC trending down. # Leukocytosis with (no bandemia, afebrile): WBC 13k. Improved. -RVP/covid neg -PCT(mildly)/CRP elevated -CT chest w/fibrosis & acute infiltrate # Advanced dementia: - Baseline A&Ox his name. Seems like baseline now. - Pt is weak and family like Rehab. # Pulmonary Fibrosis/Bronchiectasis: - No evidence of infection. Dced Anbx. # COPD: Stopped using inhalers. On RA now. # PAM: Stopped using CPAP, could not tolerate # H/o CVA: stopped taking asa/statin # CAD: pt Stopped taking cardiac meds # Nasal MRSA positive. -MRSA decolonization # Patient only takes Tylenol these days per family, stopped medications he has been on in the past # Code. DNR/DNI DVT ppx: lovenox Dispo. Dc to SNF in stable condition. Disposition: Patient senior care home Condition on discharge: Hemodynamically stable. Tolerated p.o. Discharge activity: As tolerated Discharge diet: Healthy, low-fat Discharge medication: See med reconciliation form Discharge follow-up: Primary care physician within 1 week for post hospital follow-up Discharge diagnosis: Encephalopathy. Resolved Time Spent with Patient Time attestation: Total time spent providing and/or coordinating discharge services: EXAM Constitutional Vitals: Temp Pulse Resp BP Pulse Ox 98.1 F 80 20 102/68 95 11/21/20 08:00 11/21/20 08:00 11/21/20 08:00 11/21/20 08:00 11/21/20 08:00 Discharge Data Data Completed and Pending Labs on day of discharge: Preliminary micro results at discharge 11/16/20 17:00 Blood Culture - Preliminary Blood 11/16/20 16:34 Blood Culture - Preliminary Blood Discharge Plan Patient/Caregiver Discharge Instructions Activity: increase activity as tolerated Diet: Regular Diet Activity Restrictions/Additional Instructions: Follow-up with PCP in 3 to 7 days Prescriptions: New enoxaparin [Lovenox] 40 mg/0.4 mL Syringe 40 mg SQ DAILY 15 Days RF: 0 Continued acetaminophen 500 mg Tablet 1,000 mg PO BID RF: 0 Follow Up Plan Follow up with: Unknown,Unknown [Primary Care Provider] - Patient Disposition: Xfer SNF Prognosis: Undetermined Rehab Potential: Fair I certify that the patient requires SNF services: Yes Overall status at discharge: patient is progressing back to baseline Discharge Orders: Discharge Order (Routine); Ordered 11/21/20 Ordered By: Owen MONDRAGON VTE Deep Vein Thrombosis/Pulmonary Embolism Present on Admission: No
[2020-11-21] MEDS: ACETAMINOPHEN 325 MG TABLET PO PRN (13:00)
[2020-11-24 15:02] LABS: M. Pneumoniae IGG 3.35
== END 2020-11-21 14:54 | DRG 72 ==
LOC: ED 10:53 → MEDSUR 17:40
PROVIDERS: ADMIT Internal Medicine; ATTEND Internal Medicine